=== PATIENT | male | born 1970 | race Caucasian/White ===

== ENCOUNTER 2016-12-19 19:38 | Emergency (ER) | payer BC ==
[2016-12-19 19:48] VITALS: BP 120/86
[2016-12-19 20:02] LABS: Urine Appearance Clear; Urine Bilirubin Negative (NEGATIVE); Urine Blood Negative /ul (NEGATIVE); Urine Color Yellow; Urine Ketone Negative (NEGATIVE); Urine Nitrite Negative (NEGATIVE); Urine Protein Negative (NEGATIVE); Urine Specific Gravity 1.005 SP.GR. (1.005-1.030); Urine Urobilinogen Normal (NORMAL); Urine pH 5.5 pH (5.0-7.0)
[2016-12-19 20:03] LABS: Urine Bacteria None Seen; Urine RBC None Seen /hpf (0-5); Urine WBC 0-5 /hpf (0-5)
[2016-12-19] MEDS ORDERED: ALPRAZolam 0.25 MG TABLET PO ONE (20:04)
[2016-12-19] MEDS ORDERED: ALPRAZolam 0.25 MG TABLET ONE ×2 (20:05→20:06)
[2016-12-19 20:07] LABS: Cocaine Ur Negative (NEGATIVE); Urine Barbiturate Negative (NEGATIVE); Urine Benzodiazepines Negative (NEGATIVE); Urine Opiates Negative (NEGATIVE); Urine PCP Negative (NEGATIVE); Urine THC Negative (NEGATIVE)
--- NOTE | 2016-12-19 20:12 | ERNOTE ---
Psychological HPI - Date Date of Service: 01/14/17 - General Chief Complaint: Psychiatric Problem Source: Reports: patient, family, RN notes reviewed, past records Exam Limitations: Reports: no limitations - Immun/Allergies/Home Medications Allergies/Adverse Reactions: Allergies No Known Allergies Allergy (Verified 12/19/16 19:48) Home Medications: HOME MEDICATIONS Insulin Aspart [Novolog Flexpen] 7 unit SQ ACHS PRN 09/28/13 [Last Taken ] ALPRAZolam [Xanax] 0.25 mg PO DAILY PRN #10 tablet 12/19/16 [Last Taken Unknown] Citalopram Hydrobromide [Citalopram HBr] 10 mg PO DAILY #14 tablet 12/19/16 [ Last Taken Unknown] Insulin Glargine,Hum.rec.anlog [Lantus] 20 units SC HS 12/19/16 [Last Taken Unknown] - History of Present Illness Narrative: 46 y/o male ambulatory to the ED with his mother for depression symptoms. He and his girlfriend broke up recently. For the past week, he has been very depressed and unable to sleep. He has been on antidepressants in the past. Time Seen by Provider: 12/19/16 19:55 Arrived by: Reports: private car Onset/duration: Reports: gradual onset Intent: Reports: no prior thoughts-suicide, other - denies any suicidal thoughts Situational Problems: Reports: significant other Associated Symptoms: Reports: depressed. Denies: angry, frustrated, agitated, hostile, suicidal thoughts Prior Treament: Denies: recently seen, similar symptoms before Review of Systems - Review of Systems Constitutional: Present: fatigue. Absent: recent illness, fever EYE: Present: no symptoms reported ENT: Present: no symptoms reported Respiratory: Present: no symptoms reported Cardiology: Absent: chest pain, palpitations Gastrointestinal/Abdominal: Present: eating less, drinking less. Absent: vomiting, diarrhea Genitourinary: Present: no symptoms reported Musculoskeletal: Present: no symptoms reported Skin: Present: no symptoms reported Neurological: Absent: headache, dizziness/light-headedness Endocrine: Present: no symptoms reported Hematologic/Lymphatic: Present: no symptoms reported Psych: Present: depressed - Patient's Past Medical History Patient History - Medical: Diabetes Type 1, Depression Patient History - Cardiac/Respiratory: No pertinent hx Patient History - Cancer: No Hx of Cancer Patient History - Surgical Procedures: No surgical history Patient History - Other: None - Social History Living Situations: alone Abuse History: No History of abuse Psych History: Hx of Depression, Current tx/ever been on anti-depressants or anti-anxiety meds Smoking Status: Never smoker Alcohol Use: none Drug Use: none Psychological Exam - Exam General Appearance: Present: alert, mild distress, thin Head Exam: Present: normal inspection Neurological: Present: alert, calm, oriented x 3, depressed affect, flat Thoughts/Hallucinations: Present: normal thought pattern Behavior/Eye Contact/Speech: Present: cooperative, normal speech Respiratory: Present: no respiratory distress, normal breath sounds, no accessory muscle use, lungs clear Cardiovascular/Chest: Present: regular rate, rhythm, no murmur Skin Exam: Present: normal color, warm/dry ED Progress - Vital Signs Patient's Vital Signs:: I have reviewed the patient's vital signs. Vital Signs: Vital Signs 12/19/16 19:41 Temperature 36.3 C L Pulse Rate 104 H Respiratory 12 Rate Blood Pressure 120/86 O2 Sat by Pulse 96 Oximetry - Progress/Reassessment Chief Complaint: Psychiatric Problem Progress:: Unchanged Departure Clinical Impression: Depression Qualifiers: Depression Type: unspecified Qualified Code(s): F32.9 - Major depressive disorder, single episode, unspecified - Departure Disposition: Home Follow Up Needed Condition: Good Instructions: Dysphoria Additional Instructions: Contact Dr. Martínez's office tomorrow for follow-up in the next 7 to 10 days Return to the ER if symptoms worsen in the meantime Referrals: Elton Martínez DO [Primary Care Provider] - Prescriptions: ALPRAZolam [Xanax] 0.25 mg PO DAILY PRN #10 tablet PRN Reason: Insomnia Citalopram Hydrobromide [Citalopram HBr] 10 mg PO DAILY #14 tablet
== END 2016-12-19 20:15 | disposition home or self-care (01) ==
LOC: ER 19:38
DX: F32.9 Major depressive disorder, single episode, unspecified (principal); E10.9 Type 1 diabetes mellitus without complications; Z79.4 Long term (current) use of insulin

== ENCOUNTER 2018-03-30 10:22 | Inpatient (IN) ==
[2018-03-30] MEDS ORDERED: INSULIN REGULAR, HUMAN 100 UNITS/ML VIAL IV ONE (10:31)
[2018-03-30] MEDS ORDERED: NORMAL SALINE 1,000 ML IV ONE ×2 (10:31→11:29)
[2018-03-30] MEDS ORDERED: ONDANSETRON HCL/PF 2 MG/ML VIAL IV ONE (10:34)
[2018-03-30 10:50] LABS: Hematocrit 44.4 % (42.0-52.0); Hemoglobin 15.4 gm/dL (13.5-18.0); Mean Cell Volume 91.2 fl (78-100); Mean Corpuscular Hemoglobin 31.6 pg (27-31); Mean Corpuscular Hgb Conc 34.7 g/dl (32-36); Mean Platelet Volume 9.6 fl (8-11.3); Neutrophil % 86.2 % (42-75.0); Platelet Count 365 K/mm3 (150-450); Red Blood Count 4.87 M/mm3 (4.7-6.0); Red Cell Distribution Width 11.9 % (11.5-14.0); White Blood Count 26.7 K/mm3 (4.0-10.5)
[2018-03-30 10:54] LABS: Total Cells Counted 100
--- NOTE | 2018-03-30 11:00 | ERNOTE ---
Medical Problem HPI - Narrative Date of Service: 03/30/18 - General Chief Complaint: Diabetes Related Problem Time Seen by Provider: 03/30/18 10:27 Source: patient Exam Limitations: clinical condition - Immun/Allergies/Home Medications Immunizations: IMMUNIZATION HX Immunizations Up to Date Yes History of Influenza Vaccine No Hx Pneumococcal Vaccination No Allergies/Adverse Reactions: Allergies No Known Allergies Allergy (Verified 03/30/18 13:01) Home Medications: HOME MEDICATIONS Insulin Glargine,Hum.rec.anlog [Lantus] 20 units SC DAILY@1230 12/19/16 [Last Taken 03/29/18] Insulin Lispro [Humalog] See Protocol SQ ACHS 03/30/18 [Last Taken 03/29/18] - Pain Score Pain Score #1 Pain Score: 0 - History of Present History Narrative: The patient is a 48 year old male who presents for lethargy and vomiting which has been present since last evening. There are associated symptoms of increased thirst and decreased appetite. The patient denies pain. There are no alleviating factors. There are no aggravating factors. Previous treatments have included: none. The past medical history includes: DM, HTN and HLD. The social history is negative for smoking. The patient has had no ill contacts. Patient states last evening he began having nausea with vomiting, body aches and fatigue. Patient upon arrival is lethargic with dry mucous membranes. Review of Systems - Review of Systems Constitutional: Present: chills, fatigue. Absent: fever EYE: Present: no symptoms reported ENT: Absent: nasal drainage, sore throat Respiratory: Absent: shortness of breath, cough Cardiology: Absent: chest pain Gastrointestinal/Abdominal: Present: nausea, vomiting. Absent: diarrhea, abdominal pain Genitourinary: Present: decreased urinary output. Absent: frequency, dysuria Musculoskeletal: Present: muscle pain Neurological: Present: weakness Endocrine: Present: increased thirst Hematologic/Lymphatic: Present: no symptoms reported Psych: Present: no symptoms reported All Other Systems: All systems neg except as marked Medical History (Last Reviewed 03/30/18 @ 10:58 by BRISA Arnett) Diabetes mellitus Onset Date: Unknown Diabetic eye exam Onset Date: ~04/27/17 IEC - no evidence of diabetic retinopathy found in either eye Erectile dysfunction Onset Date: Unknown Essential hypertension Onset Date: ~06/10/11 Hyperlipidemia Onset Date: Unknown Neuropathy Onset Date: Unknown bilateral feet Surgical History: Surgical History (Last Reviewed 03/30/18 @ 10:58 by BRISA Arnett) S/P epidural steroid injection Onset Date: ~11/13/13 L4-L5 Family History: Family History (Last Reviewed 03/30/18 @ 13:01 by Ascencion Whitney RN) Mother No pertinent past medical history Father No pertinent past medical history Social History: Preferred Language Macedonian Do you have any mormonism or No cultural preference? Smoking Status Never smoker Have you smoked in the past 12 No months Do you dip or chew tobacco No Abuse History No History of abuse Psych History Hx of Depression,Currently on Meds Alcohol Use occasionally Drug Use none (Last Updated 02/01/18 @ 14:47 by Rose Marie Mendez RN) No Social History Section defined Physical Exam - Physical Exam General Appearance: Present: lethargic, irritable Eye Exam: Normal inspection: bilateral Ears, Nose, Throat: Present: dry mucous membranes Respiratory: Present: no respiratory distress, normal breath sounds, lungs clear Cardiovascular/Chest: Present: no murmur, tachycardia Gastrointestinal/Abdominal: Present: normal bowel sounds, nontender, soft, no organomegaly Neurological Exam: Absent: motor weakness Skin Exam: Present: warm/dry, other - flushed ED Progress - Date and Time Seen: Date and Time: 03/30/18 11:26 Discussed care with , will admit patient to SCU for DKA treatment. - Results and Orders Patient's Lab Results:: I have reviewed the patient's lab results. - Vital Signs Patient's Vital Signs:: I have reviewed the patient's vital signs. Vital Signs: Vital Signs 03/30/18 10:31 03/30/18 10:45 Temperature 36.7 C Pulse Rate 120 H 120 H Respiratory Rate 22 H 24 H Blood Pressure 158/103 H 138/77 O2 Sat by Pulse Oximetry 100 - EKG EKG: NSR - tachycardia EKG read: Reviewed by me - X-Ray X-Ray #1 X-Ray: chest Interpretation: Reviewed by me X-ray Comments: X-RAY REPORT [id number] RAD/Chest Single View *~ Exam Date: 03/30/2018 11:20 Ordering Physician: Lou Mendiola HISTORY: Diabetic ketoacidosis. Additional history from technologist: diabetic episode TECHNIQUE: Single portable AP view of the chest was obtained at 1133 hours. COMPARISONS: 02/21/2017 FINDINGS: Chest Single View *: Normal inflation of lungs. No definite consolidation. Pulmonary vasculature is normal. No pneumothorax or pleural fluid collections apparent. Cardiac and mediastinal silhouettes are normal for technique. Trachea is in normal position given patient positioning. Osseous structures are grossly intact. IMPRESSION: No acute cardiopulmonary findings. Electronically signed by Francisco Piña M.D.. X-Ray #2 X-Ray: abdomen Interpretation: Reviewed by me X-ray Comments: X-RAY REPORT ~[id number] RAD/Abdomen Kub~ Exam Date: 03/30/2018 11:22 Ordering Physician: Jung Farias HISTORY: Diabetic ketoacidosis. TECHNIQUE: AP supine radiograph(s) of the abdomen were obtained, total of 2 images obtained. COMPARISONS: None available.. FINDINGS: Abdomen Kub: Without upright or decubitus imaging, potential free air cannot be entirely excluded. No obvious supine imaging findings of free air. No abnormal dilation of large or small bowel. There is mild to moderate stool retention throughout the colonic segments, especially at the rectosigmoid region. No definite pathologic calcifications apparent. Osseous structures are intact. IMPRESSION: Stool retention suggestive of constipation. No evidence for obstruction. Electronically signed by Francisco Piña M.D.. - Progress/Reassessment Chief Complaint: Diabetes Related Problem Departure Clinical Impression: DKA (diabetic ketoacidosis) Qualifiers: Diabetes mellitus type: type 1 Diabetes mellitus complication detail: without coma Qualified Code(s): E10.10 - Type 1 diabetes mellitus with ketoacidosis without coma - Departure Disposition: Still a patient Condition: Stable
[2018-03-30 11:03] LABS: Band 26 % (0-2.0); Dohle Bodies 2+; Lymphocyte 5 % (20-51); Monocyte 3 % (0-9); Neutrophil 66 % (42-75); Neutrophil # 17.6 K/mm3 (1.3-6.0); Platelet Estimate Normal (NORMAL)
[2018-03-30 11:14] LABS: ALT 24 U/L (19-67); AST 16 U/L (0-48); Albumin * 3.5 gm/dl (3.4-5.0); Alkaline Phosphatase * 160 U/L (50-170); Anion Gap 37.4 mmol/L (6.8-13.8); Bilirubin, Total 0.7 mg/dL (0.0-1.1); Blood Urea Nitrogen 25 mg/dL (6-23); Ca. Corrected For Albumin 8.5 mg/dL (8.4-10.2); Calcium * 8.4 mg/dL (7.9-10.9); Carbon Dioxide 5.8 mmol/L (24-32.6); Chloride 93 mmol/L (97-106); Potassium 5.2 mmol/L (3.4-4.6); Sodium 131 mmol/L (132-142); Total Protein 7.1 gm/dL (6.2-8.2)
[2018-03-30 11:16] LABS: Glucose * 528 mg/dL (70-110)
[2018-03-30] MEDS: INSULIN REGULAR, HUMAN 100 UNITS in NORMAL SALINE 100 ML IV PRN ×2 (11:43)
[2018-03-30 12:03] LABS: Urine Bilirubin 1 mg/dl (NEGATIVE); Urine Blood 25 /ul (NEGATIVE); Urine Ketone Large mg/dL (NEGATIVE); Urine Nitrite Negative (NEGATIVE); Urine Protein 30 mg/dL (NEGATIVE); Urine Specific Gravity >=1.030 SP.GR. (1.005-1.030); Urine Urobilinogen Normal (NORMAL); Urine pH 5.5 pH (5.0-7.0)
[2018-03-30 12:17] LABS: Urine Amorphous Sediment TRACE (NONE-FEW); Urine Appearance Clear (CLEAR); Urine Bacteria None Seen; Urine Color Yellow; Urine RBC 0-5 /hpf (0-5); Urine WBC None Seen /hpf (0-5)
[2018-03-30] MEDS: NORMAL SALINE 1,000 ML IV PRN ×3 (12:30→20:49)
[2018-03-30] MEDS ORDERED: SENNOSIDES/DOCUSATE SODIUM 1 TAB TABLET PO ONE (12:58)
[2018-03-30] MEDS: POLYETHYLENE GLYCOL 3350 119 GM BTL PO SCH (13:20)
[2018-03-30 13:57] LABS: Hematocrit 40.7 % (42.0-52.0); Hemoglobin 14.4 gm/dL (13.5-18.0); Mean Cell Volume 88.5 fl (78-100); Mean Corpuscular Hemoglobin 31.3 pg (27-31); Mean Corpuscular Hgb Conc 35.4 g/dl (32-36); Mean Platelet Volume 9.5 fl (8-11.3); Platelet Count 284 K/mm3 (150-450); Red Cell Distribution Width 11.9 % (11.5-14.0); White Blood Count 23.9 K/mm3 (4.0-10.5)
[2018-03-30 14:13] LABS: ALT 22 U/L (19-67); AST 15 U/L (0-48); Albumin * 3.2 gm/dl (3.4-5.0); Alkaline Phosphatase * 144 U/L (50-170); Anion Gap 30.5 mmol/L (6.8-13.8); BUN/Creatinine Ratio 17.1 (9.0-21.6); Bilirubin, Total 0.7 mg/dL (0.0-1.1); Blood Urea Nitrogen 22 mg/dL (6-23); Ca. Corrected For Albumin 7.9 mg/dL (8.4-10.2); Calcium * 7.6 mg/dL (7.9-10.9); Carbon Dioxide 7.2 mmol/L (24-32.6); Chloride 99 mmol/L (97-106); Glucose * 353 mg/dL (70-110); Potassium 4.7 mmol/L (3.4-4.6); Sodium 132 mmol/L (132-142); Total Protein 6.5 gm/dL (6.2-8.2); Troponin I Less than 0.017 ng/mL (0.00-0.10)
[2018-03-30] MEDS: BENZOCAINE/MENTHOL 16 EACH BOX MM PRN ×2 (15:45→20:58)
[2018-03-30 17:20] LABS: Albumin * 3.3 gm/dl (3.4-5.0); Anion Gap 28.6 mmol/L (6.8-13.8); BUN/Creatinine Ratio 15.5 (9.0-21.6); Bilirubin, Total 0.8 mg/dL (0.0-1.1); Calcium * 7.8 mg/dL (7.9-10.9); Carbon Dioxide 6.4 mmol/L (24-32.6); Total Protein 6.7 gm/dL (6.2-8.2)
[2018-03-30] MEDS: ONDANSETRON HCL/PF 2 MG/ML VIAL IV PRN ×2 (19:33→23:55)
[2018-03-30 21:35] LABS: Albumin * 3.2 gm/dl (3.4-5.0); Anion Gap 25.8 mmol/L (6.8-13.8); Bilirubin, Total 0.8 mg/dL (0.0-1.1); Ca. Corrected For Albumin 8.1 mg/dL (8.4-10.2); Calcium * 7.8 mg/dL (7.9-10.9); Carbon Dioxide 9.8 mmol/L (24-32.6); Potassium 4.6 mmol/L (3.4-4.6); Total Protein 6.7 gm/dL (6.2-8.2)
--- NOTE | 2018-03-30 23:53 | HP ---
Chief Complaint - Chief Complaint Date of Service: 03/30/18 Time of Service: 16:00 Chief Complaint: Vomiting, fatigue History of Present Illness: Eduardo is a 48 yo male with Type I Diabetes Mellitus. His last hemoglobin A1c was below 7% and he reports it has been well controlled. However yesterday and today he has been vomiting a lot and it has been black and tarry. He denies black stools. He gradually became more and more fatigued and presented to the [facility] ER. His glucose was >300, pH 7.0, with metabolic acidosis, serum ketones, and a high anion gap. He reports he has been using his insulin like usual. Medical History (Last Updated 03/30/18 @ 14:51 by Ascencion Whitney RN) Depression Diabetes mellitus Onset Date: Unknown Diabetic eye exam Onset Date: ~04/27/17 IEC - no evidence of diabetic retinopathy found in either eye Erectile dysfunction Onset Date: Unknown Essential hypertension Onset Date: ~06/10/11 Hyperlipidemia Onset Date: Unknown Neuropathy Onset Date: Unknown bilateral feet Surgical History: Surgical History (Last Reviewed 03/30/18 @ 13:01 by Ascencion Whitney RN) S/P epidural steroid injection Onset Date: ~11/13/13 L4-L5 Family History: Family History (Last Reviewed 03/30/18 @ 13:01 by Ascencion Whitney RN) Mother No pertinent past medical history Father No pertinent past medical history Social History: Patient Lives/Resources Home Utilized Occupation [employer] in [place] Preferred Language Chinese Do you have any rastafari or Yes: Baptism cultural preference? Smoking Status Never smoker Have you smoked in the past 12 No months Do you dip or chew tobacco Yes Abuse History No History of abuse Psych History Hx of Depression,Currently on Meds Alcohol Use occasionally Drug Use none (Last Updated 02/01/18 @ 14:47 by Rose Marie Mendez RN) No Social History Section defined Review Of Systems (GEN) - Review of Systems Generalized/Overall Review: Present: Weakness, Malaise. Absent: Chills, Fever EENTM: Present: No Symptoms Reported Respiratory: Absent: Cough, Shortness of Breath Cardiac: Absent: Chest Pain, Edema, Palpitations, Syncope Abdominal: Present: Nausea, Vomiting, Hematemesis. Absent: Abdominal Pain Genitourinary: Present: No Symptoms Reported Musculoskeletal: Present: No Symptoms Reported Neurological: Present: No Symptoms Reported Skin: Present: No Symptoms Reported Immunizations: IMMUNIZATION HX Immunizations Up to Date Yes History of Influenza Vaccine No Hx Pneumococcal Vaccination No Allergies/Adverse Reactions: Allergies Allergy/AdvReac Type Severity Reaction Status Date / Time No Known Allergies Allergy Verified 03/30/18 13:01 Home Medications: HOME MEDICATIONS Insulin Glargine,Hum.rec.anlog [Lantus] 20 units SC DAILY@1230 12/19/16 [Last Taken 03/29/18] Insulin Lispro [Humalog] See Protocol SQ ACHS 03/30/18 [Last Taken 03/29/18] Exam - Exam Vital Signs: Vital Signs - Last Taken Temp 37.4 C 03/30/18 21:00 Pulse 113 H 03/30/18 21:00 Resp 14 03/30/18 21:00 BP 136/76 03/30/18 21:00 Pulse Ox 98 03/30/18 21:00 Constitutional: Present: Alert, Oriented x3, Cooperative, Other - Appears fatig ued ENT Exam: Present: hearing grossly normal Eye Exam: bilateral eye: normal inspection Respiratory: Present: lungs clear, normal breath sounds, no respiratory distress Cardiovascular/Chest: Present: no edema, no murmur, tachycardia Abdomen: Present: Normal bowel sounds, soft, nontender, nondistended Extremity: Present: normal inspection Skin Exam: Present: normal color, warm/dry, no cyanosis Neurologic: Present: alert, normal mood/affect, oriented x 3 Eye contact: Present: cooperative, good eye contact, normal speech Thoughts: Present: normal thought pattern, no apparent hallucination Diagnostic Studies: Abnormal Lab Results 03/30/18 03/30/18 03/30/18 Range/Units 10:43 10:43 10:43 WBC 26.7 H (4.0-10.5) K/mm3 RBC (4.7-6.0) M/mm3 Hct (42.0-52.0) % MCH 31.6 H (27-31) pg Immature Gran % (Auto) 1.50 H (0.001-0.429) % Immature Gran # (Auto) 0.41 H (0.000-0.0310) K/mm3 Neutrophils % 86.2 H (42-75.0) % Band Neuts % (Manual) 26 H (0-2.0) % Lymphocytes % 4.5 L (20-51) % Lymphocytes % (Manual) 5 L (20-51) % Neutrophils # 23.0 H (1.3-6.0) K/mm3 Neutrophils # (Manual) 17.6 H (1.3-6.0) K/mm3 Lymphocytes # 1.20 L (1.5-3.5) k/mm3 Lymphocytes # (Manual) 1.3 L (1.5-3.5) k/mm3 Monocytes # 2.0 H (0.0-1.0) k/mm3 pCO2 (35.0-48.0) mmHg pO2 (83.0-108.0) mmHg HCO3 (21.0-28.0) mmol/L Total CO2 (19.0-24.0) mmol/L Base Excess (-2.0-3.0) mmol/L ABG pH (7.35-7.45) Sodium 131 L (132-142) mmol/L Potassium 5.2 H (3.4-4.6) mmol/L Chloride 93 L (97-106) mmol/L Carbon Dioxide 5.8 L (24-32.6) mmol/L Anion Gap 37.4 H (6.8-13.8) mmol/L BUN 25 H D (6-23) mg/dL Creatinine 1.67 H D (0.4-1.4) mg/dL Est GFR (Non-Af Amer) 47 L D (60-130) mL/min Random Glucose 528 H* (70-110) mg/dL Lactic Acid, Venous 3.0 H* (0.4-2.0) mmol/L Calcium (7.9-10.9) mg/dL Calcium Adj for Albumin (8.4-10.2) mg/dL Albumin (3.4-5.0) gm/dl Urine Protein (NEGATIVE) mg/dL Urine Glucose (UA) (NEGATIVE) mg/dL Urine Blood (NEGATIVE) /ul Urine Bilirubin (NEGATIVE) mg/dl Gastric Occult Blood Serum Ketones Positive - 20mg/dl H (NEGATIVE) 03/30/18 03/30/18 03/30/18 Range/Units 10:52 11:47 13:45 WBC (4.0-10.5) K/mm3 RBC (4.7-6.0) M/mm3 Hct (42.0-52.0) % MCH (27-31) pg Immature Gran % (Auto) (0.001-0.429) % Immature Gran # (Auto) (0.000-0.0310) K/mm3 Neutrophils % (42-75.0) % Band Neuts % (Manual) (0-2.0) % Lymphocytes % (20-51) % Lymphocytes % (Manual) (20-51) % Neutrophils # (1.3-6.0) K/mm3 Neutrophils # (Manual) (1.3-6.0) K/mm3 Lymphocytes # (1.5-3.5) k/mm3 Lymphocytes # (Manual) (1.5-3.5) k/mm3 Monocytes # (0.0-1.0) k/mm3 pCO2 Less than 14.9 L* (35.0-48.0) mmHg pO2 138.3 H (83.0-108.0) mmHg HCO3 2.6 L (21.0-28.0) mmol/L Total CO2 2.9 L (19.0-24.0) mmol/L Base Excess -26.8 L (-2.0-3.0) mmol/L ABG pH 7.00 L* (7.35-7.45) Sodium (132-142) mmol/L Potassium 4.7 H (3.4-4.6) mmol/L Chloride (97-106) mmol/L Carbon Dioxide 7.2 L (24-32.6) mmol/L Anion Gap 30.5 H (6.8-13.8) mmol/L BUN (6-23) mg/dL Creatinine (0.4-1.4) mg/dL Est GFR (Non-Af Amer) (60-130) mL/min Random Glucose 353 H D (70-110) mg/dL Lactic Acid, Venous (0.4-2.0) mmol/L Calcium 7.6 L (7.9-10.9) mg/dL Calcium Adj for Albumin 7.9 L (8.4-10.2) mg/dL Albumin 3.2 L (3.4-5.0) gm/dl Urine Protein 30 H (NEGATIVE) mg/dL Urine Glucose (UA) >=1000 H (NEGATIVE) mg/dL Urine Blood 25 H (NEGATIVE) /ul Urine Bilirubin 1 H (NEGATIVE) mg/dl Gastric Occult Blood Serum Ketones (NEGATIVE) 03/30/18 03/30/18 03/30/18 Range/Units 13:45 16:55 17:18 WBC 23.9 H (4.0-10.5) K/mm3 RBC 4.60 L (4.7-6.0) M/mm3 Hct 40.7 L (42.0-52.0) % MCH 31.3 H (27-31) pg Immature Gran % (Auto) (0.001-0.429) % Immature Gran # (Auto) (0.000-0.0310) K/mm3 Neutrophils % (42-75.0) % Band Neuts % (Manual) (0-2.0) % Lymphocytes % (20-51) % Lymphocytes % (Manual) (20-51) % Neutrophils # (1.3-6.0) K/mm3 Neutrophils # (Manual) (1.3-6.0) K/mm3 Lymphocytes # (1.5-3.5) k/mm3 Lymphocytes # (Manual) (1.5-3.5) k/mm3 Monocytes # (0.0-1.0) k/mm3 pCO2 (35.0-48.0) mmHg pO2 (83.0-108.0) mmHg HCO3 (21.0-28.0) mmol/L Total CO2 (19.0-24.0) mmol/L Base Excess (-2.0-3.0) mmol/L ABG pH (7.35-7.45) Sodium 131 L (132-142) mmol/L Potassium 5.0 H (3.4-4.6) mmol/L Chloride (97-106) mmol/L Carbon Dioxide 6.4 L (24-32.6) mmol/L Anion Gap 28.6 H (6.8-13.8) mmol/L BUN (6-23) mg/dL Creatinine (0.4-1.4) mg/dL Est GFR (Non-Af Amer) (60-130) mL/min Random Glucose 314 H (70-110) mg/dL Lactic Acid, Venous (0.4-2.0) mmol/L Calcium 7.8 L (7.9-10.9) mg/dL Calcium Adj for Albumin 8.0 L (8.4-10.2) mg/dL Albumin 3.3 L (3.4-5.0) gm/dl Urine Protein (NEGATIVE) mg/dL Urine Glucose (UA) (NEGATIVE) mg/dL Urine Blood (NEGATIVE) /ul Urine Bilirubin (NEGATIVE) mg/dl Gastric Occult Blood Positive H Serum Ketones (NEGATIVE) 03/30/18 Range/Units 21:07 WBC (4.0-10.5) K/mm3 RBC (4.7-6.0) M/mm3 Hct (42.0-52.0) % MCH (27-31) pg Immature Gran % (Auto) (0.001-0.429) % Immature Gran # (Auto) (0.000-0.0310) K/mm3 Neutrophils % (42-75.0) % Band Neuts % (Manual) (0-2.0) % Lymphocytes % (20-51) % Lymphocytes % (Manual) (20-51) % Neutrophils # (1.3-6.0) K/mm3 Neutrophils # (Manual) (1.3-6.0) K/mm3 Lymphocytes # (1.5-3.5) k/mm3 Lymphocytes # (Manual) (1.5-3.5) k/mm3 Monocytes # (0.0-1.0) k/mm3 pCO2 (35.0-48.0) mmHg pO2 (83.0-108.0) mmHg HCO3 (21.0-28.0) mmol/L Total CO2 (19.0-24.0) mmol/L Base Excess (-2.0-3.0) mmol/L ABG pH (7.35-7.45) Sodium (132-142) mmol/L Potassium (3.4-4.6) mmol/L Chloride (97-106) mmol/L Carbon Dioxide 9.8 L (24-32.6) mmol/L Anion Gap 25.8 H (6.8-13.8) mmol/L BUN (6-23) mg/dL Creatinine (0.4-1.4) mg/dL Est GFR (Non-Af Amer) (60-130) mL/min Random Glucose 266 H (70-110) mg/dL Lactic Acid, Venous (0.4-2.0) mmol/L Calcium 7.8 L (7.9-10.9) mg/dL Calcium Adj for Albumin 8.1 L (8.4-10.2) mg/dL Albumin 3.2 L (3.4-5.0) gm/dl Urine Protein (NEGATIVE) mg/dL Urine Glucose (UA) (NEGATIVE) mg/dL Urine Blood (NEGATIVE) /ul Urine Bilirubin (NEGATIVE) mg/dl Gastric Occult Blood Serum Ketones (NEGATIVE) Laboratory Results WBC 23.9 K/mm3 (4.0-10.5) H 03/30/18 13:45 RBC 4.60 M/mm3 (4.7-6.0) L 03/30/18 13:45 Hgb 14.4 gm/dL (13.5-18.0) 03/30/18 13:45 Hct 40.7 % (42.0-52.0) L 03/30/18 13:45 MCV 88.5 fl (78-100) 03/30/18 13:45 MCH 31.3 pg (27-31) H 03/30/18 13:45 MCHC 35.4 g/dl (32-36) 03/30/18 13:45 RDW 11.9 % (11.5-14.0) 03/30/18 13:45 Plt Count 284 K/mm3 (150-450) 03/30/18 13:45 MPV 9.5 fl (8-11.3) 03/30/18 13:45 Immature Gran % (Auto) 1.50 % (0.001-0.429) H 03/30/18 10:43 Immature Gran # (Auto) 0.41 K/mm3 (0.000-0.0310) H 03/30/18 10:43 Neutrophils % 86.2 % (42-75.0) H 03/30/18 10:43 Neutrophils % (Manual) 66 % (42-75) 03/30/18 10:43 Band Neuts % (Manual) 26 % (0-2.0) H 03/30/18 10:43 Lymphocytes % 4.5 % (20-51) L 03/30/18 10:43 Lymphocytes % (Manual) 5 % (20-51) L 03/30/18 10:43 Monocytes % 7.5 % (0.0-9) 03/30/18 10:43 Monocytes % (Manual) 3 % (0-9) 03/30/18 10:43 Eosinophils % 0.0 % (0.0-3.0) 03/30/18 10:43 Basophils % 0.3 % (0.0-1.0) 03/30/18 10:43 Nucleated RBC % 0.0 k/mm3 (0-1) 03/30/18 10:43 Neutrophils # 23.0 K/mm3 (1.3-6.0) H 03/30/18 10:43 Neutrophils # (Manual) 17.6 K/mm3 (1.3-6.0) H 03/30/18 10:43 Lymphocytes # 1.20 k/mm3 (1.5-3.5) L 03/30/18 10:43 Lymphocytes # (Manual) 1.3 k/mm3 (1.5-3.5) L 03/30/18 10:43 Monocytes # 2.0 k/mm3 (0.0-1.0) H 03/30/18 10:43 Monocytes # (Manual) 0.8 k/mm3 (0.0-1.0) 03/30/18 10:43 Eosinophils # 0.0 k/mm3 (0.0-0.7) 03/30/18 10:43 Absolute Basophils 0.1 k/mm3 (0.0-0.1) 03/30/18 10:43 Toxic Vacuolation 1+ 03/30/18 10:43 Dohle Bodies 2+ 03/30/18 10:43 Platelet Estimate Normal (NORMAL) 03/30/18 10:43 pCO2 Less than 14.9 mmHg (35.0-48.0) L* 03/30/18 10:52 pO2 138.3 mmHg (83.0-108.0) H 03/30/18 10:52 HCO3 2.6 mmol/L (21.0-28.0) L 03/30/18 10:52 Total CO2 2.9 mmol/L (19.0-24.0) L 03/30/18 10:52 Base Excess -26.8 mmol/L (-2.0-3.0) L 03/30/18 10:52 ABG pH 7.00 (7.35-7.45) L* 03/30/18 10:52 ABG O2 Sat (Measured) 97.3 % (94.0-98.0) 03/30/18 10:52 Sodium 134 mmol/L (132-142) 03/30/18 21:07 Plasma Sodium 137 mmol/L (130-142) 03/30/18 21:07 Potassium 4.6 mmol/L (3.4-4.6) 03/30/18 21:07 Chloride 103 mmol/L (97-106) 03/30/18 21:07 Carbon Dioxide 9.8 mmol/L (24-32.6) L 03/30/18 21:07 Anion Gap 25.8 mmol/L (6.8-13.8) H 03/30/18 21:07 BUN 16 mg/dL (6-23) 03/30/18 21:07 Creatinine 1.23 mg/dL (0.4-1.4) 03/30/18 21:07 Est GFR (Non-Af Amer) 66 mL/min (60-130) 03/30/18 21:07 BUN/Creatinine Ratio 13.0 (9.0-21.6) 03/30/18 21:07 Random Glucose 266 mg/dL (70-110) H 03/30/18 21:07 Lactic Acid, Venous 1.0 mmol/L (0.4-2.0) 03/30/18 13:45 Calcium 7.8 mg/dL (7.9-10.9) L 03/30/18 21:07 Calcium Adj for Albumin 8.1 mg/dL (8.4-10.2) L 03/30/18 21:07 Total Bilirubin 0.8 mg/dL (0.0-1.1) 03/30/18 21:07 AST 16 U/L (0-48) 03/30/18 21:07 ALT 21 U/L (19-67) 03/30/18 21:07 Alkaline Phosphatase 142 U/L (50-170) 03/30/18 21:07 Troponin I Less than 0.017 ng/mL (0.00-0.10) 03/30/18 13:45 Total Protein 6.7 gm/dL (6.2-8.2) 03/30/18 21:07 Albumin 3.2 gm/dl (3.4-5.0) L 03/30/18 21:07 Urine Color Yellow 03/30/18 11:47 Urine Appearance Clear (CLEAR) 03/30/18 11:47 Urine pH 5.5 pH (5.0-7.0) 03/30/18 11:47 Ur Specific [place] >=1.030 SP.GR. (1.005-1.030) 03/30/18 11:47 Urine Protein 30 mg/dL (NEGATIVE) H 03/30/18 11:47 Urine Glucose (UA) >=1000 mg/dL (NEGATIVE) H 03/30/18 11:47 Urine Ketones Large mg/dL (NEGATIVE) 03/30/18 11:47 Urine Blood 25 /ul (NEGATIVE) H 03/30/18 11:47 Urine Nitrate Negative (NEGATIVE) 03/30/18 11:47 Urine Bilirubin 1 mg/dl (NEGATIVE) H 03/30/18 11:47 Urine Ictotest Negative (NEGATIVE) 03/30/18 11:47 Prot Sulfosalicylic Acd 1+ mg/dL (0) 03/30/18 11:47 Urine Urobilinogen Normal EU/dl (NORMAL) 03/30/18 11:47 Ur Leukocyte Esterase Negative /ul (NEGATIVE) 03/30/18 11:47 Urine RBC 0-5 /hpf (0-5) 03/30/18 11:47 Urine WBC None seen /hpf (0-5) 03/30/18 11:47 Ur Epithelial Cells None seen /hpf (0-5) 03/30/18 11:47 Amorphous Sediment Trace (NONE-FEW) 03/30/18 11:47 Urine Bacteria None seen (NONE) 03/30/18 11:47 Urine Culture Comments No culture indicated 03/30/18 11:47 Gastric Occult Blood Positive H 03/30/18 17:18 Serum Ketones Positive - 20mg/dl (NEGATIVE) H 03/30/18 10:43 Influenza Type A Ag Negative (NEGATIVE) 03/30/18 10:49 Influenza Type B Ag Negative (NEGATIVE) 03/30/18 10:49 Assessment/Plan - Narrative Narrative: Eduardo is a 48 yo male with: 1) Diabetic Ketoacidosis. Severe metabolic acidosis with high anion gap, positive serum ketones, and a pH of 7.0 show this to be a severe DKA. I suspect it is secondary to his type 1 diabetes but complicated from potentially having acute gastritis with GI bleed and hematemesis. He became significantly dehydrated due to emesis and snowballed into DKA. Will treat DKA with aggressive IV fluids and IV insulin. Insulin drip will be titrated based on DKA protocol with hourly glucose. Will check CMP every 4 hours and monitor fluids and electrolytes as needed. Expect >2 midnights to correct this acidosis due to it's severity. 2) GI bleed - Black tarry emesis reported by patient, will check occult stool and gastric contents. Hemoglobin is normal at this time so I do not suspect a significant bleed. Will monitor hemoglobin. - Assessment/Plan (1) DKA (diabetic ketoacidosis) Problem: Acute Qualifiers: Diabetes mellitus type: type 1 Diabetes mellitus complication detail: with out coma Qualified Code(s): E10.10 - Type 1 diabetes mellitus with ketoacidosis without coma
[2018-03-31] MEDS: NORMAL SALINE 1,000 ML IV PRN ×4 (00:58→13:20)
[2018-03-31 01:03] LABS: Albumin * 3.2 gm/dl (3.4-5.0); Anion Gap 25.4 mmol/L (6.8-13.8); BUN/Creatinine Ratio 12.1 (9.0-21.6); Bilirubin, Total 0.9 mg/dL (0.0-1.1); Ca. Corrected For Albumin 8.2 mg/dL (8.4-10.2); Calcium * 7.9 mg/dL (7.9-10.9); Carbon Dioxide 10.9 mmol/L (24-32.6); Potassium 4.3 mmol/L (3.4-4.6); Total Protein 6.5 gm/dL (6.2-8.2)
[2018-03-31] MEDS: ONDANSETRON HCL/PF 2 MG/ML VIAL IV PRN ×4 (04:49→22:56)
[2018-03-31 05:16] LABS: Anion Gap 22.3 mmol/L (6.8-13.8); BUN/Creatinine Ratio 10.7 (9.0-21.6); Bilirubin, Total 0.8 mg/dL (0.0-1.1); Ca. Corrected For Albumin 8.2 mg/dL (8.4-10.2); Calcium * 7.7 mg/dL (7.9-10.9); Carbon Dioxide 12.7 mmol/L (24-32.6); Total Protein 6.2 gm/dL (6.2-8.2)
[2018-03-31 08:54] LABS: Hematocrit 35.4 % (42.0-52.0); Hemoglobin 12.7 gm/dL (13.5-18.0); Mean Cell Volume 87.6 fl (78-100); Mean Corpuscular Hemoglobin 31.4 pg (27-31); Mean Corpuscular Hgb Conc 35.9 g/dl (32-36); Mean Platelet Volume 8.8 fl (8-11.3); Neutrophil % 85.3 % (42-75.0); Platelet Count 214 K/mm3 (150-450); Red Blood Count 4.04 M/mm3 (4.7-6.0); Red Cell Distribution Width 12.3 % (11.5-14.0); White Blood Count 14.1 K/mm3 (4.0-10.5)
[2018-03-31 09:10] LABS: Albumin * 2.8 gm/dl (3.4-5.0); Anion Gap 19.4 mmol/L (6.8-13.8); BUN/Creatinine Ratio 9.3 (9.0-21.6); Bilirubin, Total 0.9 mg/dL (0.0-1.1); Ca. Corrected For Albumin 8.3 mg/dL (8.4-10.2); Calcium * 7.7 mg/dL (7.9-10.9); Carbon Dioxide 15.3 mmol/L (24-32.6); Potassium 3.7 mmol/L (3.4-4.6); Total Protein 5.9 gm/dL (6.2-8.2)
[2018-03-31] MEDS: POLYETHYLENE GLYCOL 3350 119 GM BTL PO SCH (09:37)
[2018-03-31] MEDS: PANTOPRAZOLE SODIUM 40 MG in NORMAL SALINE 100 ML IV SCH (13:01)
--- NOTE | 2018-03-31 13:07 | PN ---
Subjective - Date and Time Seen Date: 03/31/18 Time: 13:07 Subjective Narrative: Eduardo is fatigued today, but awakens easily. He reports feeling tired and having emesis last night that was positive for blood. He has not vomited today. Objective - Vitals Vitals: Last Vital Signs Temp 37.2 C 03/31/18 08:05 Pulse 94 03/31/18 12:41 Resp 12 03/31/18 08:05 BP 120/88 03/31/18 08:05 Pulse Ox 99 03/31/18 08:05 - Abnormal Lab Findings Abnormal Lab Findings: Abnormal Lab Results 03/30/18 03/30/18 03/30/18 Range/Units 13:45 13:45 16:55 WBC 23.9 H (4.0-10.5) K/mm3 RBC 4.60 L (4.7-6.0) M/mm3 Hgb (13.5-18.0) gm/dL Hct 40.7 L (42.0-52.0) % MCH 31.3 H (27-31) pg Immature Gran % (Auto) (0.001-0.429) % Immature Gran # (Auto) (0.000-0.0310) K/mm3 Neutrophils % (42-75.0) % Lymphocytes % (20-51) % Neutrophils # (1.3-6.0) K/mm3 Lymphocytes # (1.5-3.5) k/mm3 Monocytes # (0.0-1.0) k/mm3 Sodium 131 L (132-142) mmol/L Potassium 4.7 H 5.0 H (3.4-4.6) mmol/L Chloride (97-106) mmol/L Carbon Dioxide 7.2 L 6.4 L (24-32.6) mmol/L Anion Gap 30.5 H 28.6 H (6.8-13.8) mmol/L Random Glucose 353 H D 314 H (70-110) mg/dL Calcium 7.6 L 7.8 L (7.9-10.9) mg/dL Calcium Adj for Albumin 7.9 L 8.0 L (8.4-10.2) mg/dL Total Protein (6.2-8.2) gm/dL Albumin 3.2 L 3.3 L (3.4-5.0) gm/dl Gastric Occult Blood 03/30/18 03/30/18 03/31/18 Range/Units 17:18 21:07 00:45 WBC (4.0-10.5) K/mm3 RBC (4.7-6.0) M/mm3 Hgb (13.5-18.0) gm/dL Hct (42.0-52.0) % MCH (27-31) pg Immature Gran % (Auto) (0.001-0.429) % Immature Gran # (Auto) (0.000-0.0310) K/mm3 Neutrophils % (42-75.0) % Lymphocytes % (20-51) % Neutrophils # (1.3-6.0) K/mm3 Lymphocytes # (1.5-3.5) k/mm3 Monocytes # (0.0-1.0) k/mm3 Sodium (132-142) mmol/L Potassium (3.4-4.6) mmol/L Chloride (97-106) mmol/L Carbon Dioxide 9.8 L 10.9 L (24-32.6) mmol/L Anion Gap 25.8 H 25.4 H (6.8-13.8) mmol/L Random Glucose 266 H 231 H (70-110) mg/dL Calcium 7.8 L (7.9-10.9) mg/dL Calcium Adj for Albumin 8.1 L 8.2 L (8.4-10.2) mg/dL Total Protein (6.2-8.2) gm/dL Albumin 3.2 L 3.2 L (3.4-5.0) gm/dl Gastric Occult Blood Positive H 03/31/18 03/31/18 03/31/18 Range/Units 04:55 08:49 08:49 WBC 14.1 H D (4.0-10.5) K/mm3 RBC 4.04 L (4.7-6.0) M/mm3 Hgb 12.7 L (13.5-18.0) gm/dL Hct 35.4 L (42.0-52.0) % MCH 31.4 H (27-31) pg Immature Gran % (Auto) 0.80 H (0.001-0.429) % Immature Gran # (Auto) 0.11 H (0.000-0.0310) K/mm3 Neutrophils % 85.3 H (42-75.0) % Lymphocytes % 6.0 L (20-51) % Neutrophils # 12.0 H (1.3-6.0) K/mm3 Lymphocytes # 0.85 L (1.5-3.5) k/mm3 Monocytes # 1.1 H (0.0-1.0) k/mm3 Sodium (132-142) mmol/L Potassium (3.4-4.6) mmol/L Chloride 107 H 107 H (97-106) mmol/L Carbon Dioxide 12.7 L 15.3 L (24-32.6) mmol/L Anion Gap 22.3 H 19.4 H (6.8-13.8) mmol/L Random Glucose 203 H 194 H (70-110) mg/dL Calcium 7.7 L 7.7 L (7.9-10.9) mg/dL Calcium Adj for Albumin 8.2 L 8.3 L (8.4-10.2) mg/dL Total Protein 5.9 L (6.2-8.2) gm/dL Albumin 3.0 L 2.8 L (3.4-5.0) gm/dl Gastric Occult Blood - Exam Constitutional: Present: Alert, Oriented x3, Cooperative ENT Exam: Present: hearing grossly normal Respiratory: Present: lungs clear, normal breath sounds Cardiovascular/Chest: Present: regular rate, rhythm, no edema, no murmur Extremity: Present: normal inspection Skin Exam: Present: normal color, warm/dry, no cyanosis Assessment/Plan Plan Narrative: DKA is improving. pH 7.2 today, up from 7.0. Bicarb and anion gap are improved. Elevated creatinine is back to normal today. Hemoglobin has trended down a little with fluid but not significant to suggest active profuse bleeding. Gastric contents were positive for blood but suspect this has stopped or is very minimal. Consider outpatient endoscopy unless hemoglobin significantly drops. - Problems/Diagnosis (1) DKA (diabetic ketoacidosis) Problem: Acute Qualifiers: Diabetes mellitus type: type 1 Diabetes mellitus complication detail: without coma Qualified Code(s): E10.10 - Type 1 diabetes mellitus with ketoac idosis without coma
[2018-03-31 13:14] LABS: Hematocrit 34.3 % (42.0-52.0); Hemoglobin 12.4 gm/dL (13.5-18.0); Mean Cell Volume 89.1 fl (78-100); Mean Corpuscular Hemoglobin 32.2 pg (27-31); Mean Corpuscular Hgb Conc 36.2 g/dl (32-36); Mean Platelet Volume 9.5 fl (8-11.3); Neutrophil # 11.3 K/mm3 (1.3-6.0); Neutrophil % 83.6 % (42-75.0); Platelet Count 207 K/mm3 (150-450); Red Blood Count 3.85 M/mm3 (4.7-6.0); Red Cell Distribution Width 12.6 % (11.5-14.0); White Blood Count 13.5 K/mm3 (4.0-10.5)
[2018-03-31 13:30] LABS: Albumin * 2.7 gm/dl (3.4-5.0); Anion Gap 19.2 mmol/L (6.8-13.8); BUN/Creatinine Ratio 8.8 (9.0-21.6); Bilirubin, Total 0.8 mg/dL (0.0-1.1); Ca. Corrected For Albumin 8.5 mg/dL (8.4-10.2); Calcium * 7.8 mg/dL (7.9-10.9); Carbon Dioxide 14.5 mmol/L (24-32.6); Potassium 3.7 mmol/L (3.4-4.6); Total Protein 5.6 gm/dL (6.2-8.2)
[2018-03-31] MEDS: INSULIN REGULAR, HUMAN 100 UNITS in NORMAL SALINE 100 ML IV PRN ×2 (15:15)
[2018-03-31] MEDS ORDERED: POTASSIUM CHLORIDE 20 MEQ in DEXTROSE 5%-0.5 NORMAL SALINE 1,000 ML IV PRN (15:40)
[2018-03-31] MEDS: POTASSIUM CHLORIDE 20 MEQ in DEXTROSE 5%-0.5 NORMAL SALINE 1,000 ML IV SCH ×2 (15:57→20:14)
[2018-03-31 21:19] LABS: Anion Gap 19.4 mmol/L (6.8-13.8); BUN/Creatinine Ratio 7.4 (9.0-21.6); Calcium * 7.7 mg/dL (7.9-10.9); Estimated Creat Clear 88.1; Potassium 3.4 mmol/L (3.4-4.6)
[2018-04-01 00:32] LABS: Anion Gap 15.4 mmol/L (6.8-13.8); Calcium * 8.1 mg/dL (7.9-10.9); Carbon Dioxide 17.2 mmol/L (24-32.6); Potassium 3.6 mmol/L (3.4-4.6)
[2018-04-01] MEDS: PANTOPRAZOLE SODIUM 40 MG in NORMAL SALINE 100 ML IV SCH ×2 (00:55→11:47)
[2018-04-01] MEDS: POTASSIUM CHLORIDE 20 MEQ in DEXTROSE 5%-0.5 NORMAL SALINE 1,000 ML IV SCH ×2 (01:45→07:07)
[2018-04-01 03:21] LABS: Anion Gap 12.2 mmol/L (6.8-13.8); BUN/Creatinine Ratio 4.6 (9.0-21.6); Calcium * 7.8 mg/dL (7.9-10.9); Carbon Dioxide 21.2 mmol/L (24-32.6); Estimated Creat Clear 87.3; Potassium 3.4 mmol/L (3.4-4.6)
[2018-04-01 06:35] LABS: Anion Gap 11.3 mmol/L (6.8-13.8); Calcium * 7.9 mg/dL (7.9-10.9); Estimated Creat Clear 95.2; Potassium 3.3 mmol/L (3.4-4.6)
--- NOTE | 2018-04-01 08:32 | PN ---
Subjective - Date and Time Seen Date: 04/01/18 Time: 08:32 Subjective Narrative: Eduardo did well overnight. No more issues vomiting though still slightly nauseated. VSS were stable and he slept well. His labs have significantly improved, his gap is now closed. He is wanting to try to eat. Objective - Review of Systems Generalized/Overall Review: Reports: Fatigue EENTM: Reports: No Symptoms Reported Respiratory: Reports: No Symptoms Reported Cardiac: Reports: No Symptoms Reported Abdominal: Reports: Nausea. Denies: Vomiting, Hematemesis Genitourinary Symptoms: Reports: No Symptoms Reported Musculoskeletal Complaints: Reports: No Symptoms Reported Neurological: Reports: No Symptoms Reported Skin: Reports: No Symptoms Reported - Vitals Vitals: Last Vital Signs Temp 37.0 C 04/01/18 06:00 Pulse 89 04/01/18 07:45 Resp 16 04/01/18 07:45 BP 119/65 04/01/18 07:45 Pulse Ox 98 04/01/18 07:45 - Abnormal Lab Findings Abnormal Lab Findings: Abnormal Lab Results 03/31/18 03/31/18 03/31/18 Range/Units 08:49 08:49 13:08 WBC 14.1 H D (4.0-10.5) K/mm3 RBC 4.04 L (4.7-6.0) M/mm3 Hgb 12.7 L (13.5-18.0) gm/dL Hct 35.4 L (42.0-52.0) % MCH 31.4 H (27-31) pg MCHC (32-36) g/dl Immature Gran % (Auto) 0.80 H (0.001-0.429) % Immature Gran # (Auto) 0.11 H (0.000-0.0310) K/mm3 Neutrophils % 85.3 H (42-75.0) % Lymphocytes % 6.0 L (20-51) % Neutrophils # 12.0 H (1.3-6.0) K/mm3 Lymphocytes # 0.85 L (1.5-3.5) k/mm3 Monocytes # 1.1 H (0.0-1.0) k/mm3 VBG pH 7.252 L (7.32-7.43) Potassium (3.4-4.6) mmol/L Chloride 107 H (97-106) mmol/L Carbon Dioxide 15.3 L (24-32.6) mmol/L Anion Gap 19.4 H (6.8-13.8) mmol/L BUN (6-23) mg/dL BUN/Creatinine Ratio (9.0-21.6) Random Glucose 194 H (70-110) mg/dL Calcium 7.7 L (7.9-10.9) mg/dL Calcium Adj for Albumin 8.3 L (8.4-10.2) mg/dL Total Protein 5.9 L (6.2-8.2) gm/dL Albumin 2.8 L (3.4-5.0) gm/dl 03/31/18 03/31/18 03/31/18 Range/Units 13:08 13:08 21:09 WBC 13.5 H (4.0-10.5) K/mm3 RBC 3.85 L (4.7-6.0) M/mm3 Hgb 12.4 L (13.5-18.0) gm/dL Hct 34.3 L (42.0-52.0) % MCH 32.2 H (27-31) pg MCHC 36.2 H (32-36) g/dl Immature Gran % (Auto) 0.70 H (0.001-0.429) % Immature Gran # (Auto) 0.09 H (0.000-0.0310) K/mm3 Neutrophils % 83.6 H (42-75.0) % Lymphocytes % 7.9 L (20-51) % Neutrophils # 11.3 H (1.3-6.0) K/mm3 Lymphocytes # 1.07 L (1.5-3.5) k/mm3 Monocytes # (0.0-1.0) k/mm3 VBG pH (7.32-7.43) Potassium (3.4-4.6) mmol/L Chloride 108 H (97-106) mmol/L Carbon Dioxide 14.5 L 15.0 L (24-32.6) mmol/L Anion Gap 19.2 H 19.4 H (6.8-13.8) mmol/L BUN (6-23) mg/dL BUN/Creatinine Ratio 8.8 L 7.4 L (9.0-21.6) Random Glucose 209 H 243 H (70-110) mg/dL Calcium 7.8 L 7.7 L (7.9-10.9) mg/dL Calcium Adj for Albumin (8.4-10.2) mg/dL Total Protein 5.6 L (6.2-8.2) gm/dL Albumin 2.7 L (3.4-5.0) gm/dl 04/01/18 04/01/18 04/01/18 Range/Units 00:09 03:10 06:10 WBC (4.0-10.5) K/mm3 RBC (4.7-6.0) M/mm3 Hgb (13.5-18.0) gm/dL Hct (42.0-52.0) % MCH (27-31) pg MCHC (32-36) g/dl Immature Gran % (Auto) (0.001-0.429) % Immature Gran # (Auto) (0.000-0.0310) K/mm3 Neutrophils % (42-75.0) % Lymphocytes % (20-51) % Neutrophils # (1.3-6.0) K/mm3 Lymphocytes # (1.5-3.5) k/mm3 Monocytes # (0.0-1.0) k/mm3 VBG pH (7.32-7.43) Potassium 3.3 L (3.4-4.6) mmol/L Chloride 108 H 108 H 107 H (97-106) mmol/L Carbon Dioxide 17.2 L 21.2 L 22.0 L (24-32.6) mmol/L Anion Gap 15.4 H (6.8-13.8) mmol/L BUN 5 L 5 L (6-23) mg/dL BUN/Creatinine Ratio 6.0 L 4.6 L 5.0 L (9.0-21.6) Random Glucose 201 H 196 H 203 H (70-110) mg/dL Calcium 7.8 L (7.9-10.9) mg/dL Calcium Adj for Albumin (8.4-10.2) mg/dL Total Protein (6.2-8.2) gm/dL Albumin (3.4-5.0) gm/dl - Exam Constitutional: Present: Alert, Oriented x3, Cooperative Respiratory: Present: chest non-tender, lungs clear, normal breath sounds Cardiovascular/Chest: Present: normal peripheral pulses, regular rate, rhythm, no chest tenderness Abdomen: Present: Normal bowel sounds, soft, nontender /Rectal: Present: Exam deferred Extremity: Present: normal range of motion, normal inspection Skin Exam: Present: normal color, warm/dry Neurologic: Present: alert, oriented x 3 Eye contact: Present: cooperative, good eye contact, normal speech Thoughts: Present: normal thought pattern, normal mood /affect Assessment/Plan - Problems/Diagnosis (1) DKA (diabetic ketoacidosis) Problem: Acute Qualifiers: Diabetes mellitus type: type 1 Diabetes mellitus complication detail: without coma Qualified Code(s): E10.10 - Type 1 diabetes mellitus with ketoacidosis without coma Narrative: His gap has closed. Will recheck a VBG. His potassium has dropped slightly but this was expected with the amount of insulin that he has been getting, will replace. Stopped D5 1/2 NS. Resumed home insulin and sliding scale. Will advance his diet as tolerated (slowly). Likely home tomorrow. No longer vomiting, hemoglobin has been stable (though slightly low). Recommend outpatient EGD.
[2018-04-01] MEDS: POTASSIUM CHLORIDE IN WATER 100 ML IV SCH ×3 (09:05→12:08)
[2018-04-01] MEDS: POLYETHYLENE GLYCOL 3350 119 GM BTL PO SCH (09:05)
[2018-04-01] MEDS: INSULIN GLARGINE,HUM.REC.ANLOG 100 UNITS/ML VIAL SC SCH (09:44)
[2018-04-01] MEDS ORDERED: ACETAMINOPHEN 325 MG TABLET PO PRN (11:18)
[2018-04-01] MEDS: INSULIN LISPRO 100 UNITS/ML VIAL SC SCH ×3 (11:50→22:28)
[2018-04-01 11:51] LABS: Venous Blood Gas HCO3 17.4 mmol/L (22.0-29.0); Venous Blood Gas pH 7.36 (7.32-7.43)
[2018-04-01] MEDS ORDERED: INSULIN LISPRO 100 UNITS/ML VIAL SC ONE (21:24)
[2018-04-02] MEDS: PANTOPRAZOLE SODIUM 40 MG in NORMAL SALINE 100 ML IV SCH (00:51)
[2018-04-02] MEDS: ONDANSETRON HCL/PF 2 MG/ML VIAL IV PRN (07:10)
[2018-04-02] MEDS: INSULIN LISPRO 100 UNITS/ML VIAL SC SCH ×2 (07:11→11:15)
[2018-04-02 07:46] LABS: Anion Gap 7.2 mmol/L (6.8-13.8); BUN/Creatinine Ratio 6.2 (9.0-21.6); Calcium * 8.1 mg/dL (7.9-10.9); Carbon Dioxide 29.9 mmol/L (24-32.6); Estimated Creat Clear 146.4; Potassium 3.1 mmol/L (3.4-4.6)
[2018-04-02] MEDS: INSULIN GLARGINE,HUM.REC.ANLOG 100 UNITS/ML VIAL SC SCH (08:40)
[2018-04-02] MEDS: POLYETHYLENE GLYCOL 3350 119 GM BTL PO SCH (08:40)
[2018-04-02] MEDS ORDERED: POTASSIUM CHLORIDE 20 MEQ TABLET.SA PO ONE (09:54)
--- NOTE | 2018-04-02 11:51 | DS ---
(1) DKA (diabetic ketoacidosis) Problem: Acute Qualifiers: Diabetes mellitus type: type 1 Diabetes mellitus complication detail: without coma Qualified Code(s): E10.10 - Type 1 diabetes mellitus with ketoacidosis without coma Description of Stay: 48 yo CM with Type 1 DM was admitted for DKA. Initial blood gas was 7.00 with a PCO2 of 14.9.His initial gap was 37, He also had serum ketones, sugar in his urine, intial glucose was 528, and an elevated WBC with no shift. He endorses nausea/vomiting before arrival which continued for the first 2 days while being here. The emesis was found to be heme+ but was minimal and it was determined that he could have an outpatient EGD. His H/H was initially 15.4/44.4 and trending down to 12.4/34.3 which likely was more dilutional than actual acute blood loss as he stopped having hematemesis (which was minimal to begin with) after being here for 24 hrs. He was started on the DKA protocol. His lab work improved daily, his gap closed on day 3 and was 7.2 on day 4. His glucose was 180 at time of discharge. He states that he is normally well controlled, his last A1c was [address] Martínez so no changes were made during this stay. His WBC trended down to 13.5, he had no signs of infection and his vitals were stable once his tachycardia (high of 128) resolved after he was started on fluids. Once his gap closed, he was transitioned to his regular insulin and allowed to eat. He tolerated PO intake with out recurring emesis. He was minimally nauseous but overall did well. Will have him follow up with his PCP this week where they can discuss this stay as well as getting him a referral to gen surg for an EGD to look for the source of the bleeding. It is likely from gastritis. advised the patient to limit his alcohol intake as it is most likely what sent him into DKA as well as what has caused the bleeding. No concern for varices at this time. Procedures Performed: none Results and Findings: Lab Pending Results 03/30/18 10:43: WBC 26.7 H, RBC 4.87, Hgb 15.4, Hct 44.4, MCV 91.2, MCH 31.6 H, MCHC 34.7, RDW 11.9, Plt Count 365, MPV 9.6, Immature Gran % (Auto) 1.50 H, Immature Gran # (Auto) 0.41 H, Neutrophils % 86.2 H, Neutrophils % (Manual) 66, Band Neuts % (Manual) 26 H, Lymphocytes % 4.5 L, Lymphocytes % (Manual) 5 L, Monocytes % 7.5, Monocytes % (Manual) 3, Eosinophils % 0.0, Basophils % 0.3, Nucleated RBC % 0.0, Neutrophils # 23.0 H, Neutrophils # (Manual) 17.6 H, Lymphocytes # 1.20 L, Lymphocytes # (Manual) 1.3 L, Monocytes # 2.0 H, Monocytes # (Manual) 0.8, Eosinophils # 0.0, Absolute Basophils 0.1, Toxic Vacuolation 1+, Dohle Bodies 2+, Platelet Estimate Normal 03/30/18 10:43: Sodium 131 L, Plasma Sodium 138, Potassium 5.2 H, Chloride 93 L, Carbon Dioxide 5.8 L, Anion Gap 37.4 H, BUN 25 H D, Creatinine 1.67 H D, Est GFR (Non-Af Amer) 47 L D, BUN/Creatinine Ratio 15.0, Random Glucose 528 H*, Calcium 8.4, Calcium Adj for Albumin 8.5, Total Bilirubin 0.7, AST 16, ALT 24, Alkaline Phosphatase 160, Total Protein 7.1, Albumin 3.5, Serum Ketones Positive - 20mg/dl H 03/30/18 10:43: Lactic Acid, Venous 3.0 H* 03/30/18 10:49: Influenza Type A Ag Negative, Influenza Type B Ag Negative 03/30/18 10:52: pCO2 Less than 14.9 L*, pO2 138.3 H, HCO3 2.6 L, Total CO2 2.9 L, Base Excess -26.8 L, ABG pH 7.00 L*, ABG O2 Sat (Measured) 97.3 03/30/18 11:47: Urine Color Yellow, Urine Appearance Clear, Urine pH 5.5, Ur Specific [place] >=1.030, Urine Protein 30 H, Urine Glucose (UA) >=1000 H, Urine Ketones Large, Urine Blood 25 H, Urine Nitrate Negative, Urine Bilirubin 1 H, Urine Ictotest Negative, Prot Sulfosalicylic Acd 1+, Urine Urobilinogen Normal, Ur Leukocyte Esterase Negative, Urine RBC 0-5, Urine WBC None seen, Ur Epithelial Cells None seen, Amorphous Sediment Trace, Urine Bacteria None seen, Urine Culture Comments No culture indicated 03/30/18 13:45: Lactic Acid, Venous 1.0 03/30/18 13:45: Sodium 132, Plasma Sodium 136, Potassium 4.7 H, Chloride 99, Carbon Dioxide 7.2 L, Anion Gap 30.5 H, BUN 22, Creatinine 1.29, Est GFR (Non-Af Amer) 63 D, BUN/Creatinine Ratio 17.1, Random Glucose 353 H D, Calcium 7.6 L, Calcium Adj for Albumin 7.9 L, Total Bilirubin 0.7, AST 15, ALT 22, Alkaline Ph osphatase 144, Troponin I Less than 0.017, Total Protein 6.5, Albumin 3.2 L 03/30/18 13:45: WBC 23.9 H, RBC 4.60 L, Hgb 14.4, Hct 40.7 L, MCV 88.5, MCH 31.3 H, MCHC 35.4, RDW 11.9, Plt Count 284, MPV 9.5 03/30/18 16:55: Sodium 131 L, Plasma Sodium 134, Potassium 5.0 H, Chloride 101, Carbon Dioxide 6.4 L, Anion Gap 28.6 H, BUN 20, Creatinine 1.29, Est GFR (Non-Af Amer) 63, BUN/Creatinine Ratio 15.5, Random Glucose 314 H, Calcium 7.8 L, Calcium Adj for Albumin 8.0 L, Total Bilirubin 0.8, AST 16, ALT 26, Alkaline Phosphatase 156, Total Protein 6.7, Albumin 3.3 L 03/30/18 17:18: Gastric Occult Blood Positive H 03/30/18 21:07: Sodium 134, Plasma Sodium 137, Potassium 4.6, Chloride 103, Carbon Dioxide 9.8 L, Anion Gap 25.8 H, BUN 16, Creatinine 1.23, Est GFR (Non-Af Amer) 66, BUN/Creatinine Ratio 13.0, Random Glucose 266 H, Calcium 7.8 L, Calcium Adj for Albumin 8.1 L, Total Bilirubin 0.8, AST 16, ALT 21, Alkaline Phosphatase 142, Total Protein 6.7, Albumin 3.2 L 03/31/18 00:45: Sodium 137, Plasma Sodium 139, Potassium 4.3, Chloride 105, Carbon Dioxide 10.9 L, Anion Gap 25.4 H, BUN 15, Creatinine 1.24, Est GFR (Non- Af Amer) 66, BUN/Creatinine Ratio 12.1, Random Glucose 231 H, Calcium 7.9, Calcium Adj for Albumin 8.2 L, Total Bilirubin 0.9, AST 17, ALT 24, Alkaline Phosphatase 145, Total Protein 6.5, Albumin 3.2 L 03/31/18 04:55: Sodium 138, Plasma Sodium 140, Potassium 4.0, Chloride 107 H, Carbon Dioxide 12.7 L, Anion Gap 22.3 H, BUN 13, Creatinine 1.21, Est GFR (Non- Af Amer) 68, BUN/Creatinine Ratio 10.7, Random Glucose 203 H, Calcium 7.7 L, Calcium Adj for Albumin 8.2 L, Total Bilirubin 0.8, AST 16, ALT 23, Alkaline Phosphatase 137, Total Protein 6.2, Albumin 3.0 L 03/31/18 08:49: Sodium 138, Plasma Sodium 140, Potassium 3.7, Chloride 107 H, Carbon Dioxide 15.3 L, Anion Gap 19.4 H, BUN 11, Creatinine 1.18, Est GFR (Non- Af Amer) 70, BUN/Creatinine Ratio 9.3, Random Glucose 194 H, Calcium 7.7 L, Calcium Adj for Albumin 8.3 L, Total Bilirubin 0.9, AST 12, ALT 23, Alkaline Phosphatase 131, Total Protein 5.9 L, Albumin 2.8 L 03/31/18 08:49: WBC 14.1 H D, RBC 4.04 L, Hgb 12.7 L, Hct 35.4 L, MCV 87.6, MCH 31.4 H, MCHC 35.9, RDW 12.3, Plt Count 214, MPV 8.8, Immature Gran % (Auto) 0.80 H, Immature Gran # (Auto) 0.11 H, Neutrophils % 85.3 H, Lymphocytes % 6.0 L, Monocytes % 7.7, Eosinophils % 0.1, Basophils % 0.1, Nucleated RBC % 0.0, Neutrophils # 12.0 H, Lymphocytes # 0.85 L, Monocytes # 1.1 H, Eosinophils # 0.0, Absolute Basophils 0.0 03/31/18 13:08: VBG pH 7.252 L 11/16/18 13:08: Sodium 138, Plasma Sodium 140, Potassium 3.7, Chloride 108 H, Carbon Dioxide 14.5 L, Anion Gap 19.2 H, BUN 10, Creatinine 1.14, Est GFR (Non- Af Amer) 73, BUN/Creatinine Ratio 8.8 L, Random Glucose 209 H, Calcium 7.8 L, Calcium Adj for Albumin 8.5, Total Bilirubin 0.8, AST 12, ALT 20, Alkaline Phosphatase 120, Total Protein 5.6 L, Albumin 2.7 L 03/31/18 13:08: WBC 13.5 H, RBC 3.85 L, Hgb 12.4 L, Hct 34.3 L, MCV 89.1, MCH 32.2 H, MCHC 36.2 H, RDW 12.6, Plt Count 207, MPV 9.5, Immature Gran % (Auto) 0.70 H, Immature Gran # (Auto) 0.09 H, Neutrophils % 83.6 H, Lymphocytes % 7.9 L, Monocytes % 7.6, Eosinophils % 0.1, Basophils % 0.1, Nucleated RBC % 0.0, Neutrophils # 11.3 H, Lymphocytes # 1.07 L, Monocytes # 1.0, Eosinophils # 0.0, Absolute Basophils 0.0 03/31/18 20:15: Potassium 3.4 03/31/18 21:09: Sodium 137, Plasma Sodium 139, Potassium 3.4, Chloride 106, Carbon Dioxide 15.0 L, Anion Gap 19.4 H, BUN 8, Creatinine 1.08, Est GFR (Non-Af Amer) 77, BUN/Creatinine Ratio 7.4 L, Random Glucose 243 H, Calcium 7.7 L 03/31/18 23:20: Potassium 3.6 04/01/18 00:09: Sodium 137, Plasma Sodium 139, Potassium 3.6, Chloride 108 H, Carbon Dioxide 17.2 L, Anion Gap 15.4 H, BUN 7, Creatinine 1.16, Est GFR (Non-Af Amer) 71, BUN/Creatinine Ratio 6.0 L, Random Glucose 201 H, Calcium 8.1 04/01/18 03:10: Sodium 138, Plasma Sodium 140, Potassium 3.4, Chloride 108 H, Carbon Dioxide 21.2 L, Anion Gap 12.2, BUN 5 L, Creatinine 1.09, Est GFR (Non-Af Amer) 76, BUN/Creatinine Ratio 4.6 L, Random Glucose 196 H, Calcium 7.8 L 04/01/18 06:10: Sodium 137, Plasma Sodium 139, Potassium 3.3 L, Chloride 107 H, Carbon Dioxide 22.0 L, Anion Gap 11.3, BUN 5 L, Creatinine 1.00, Est GFR (Non-Af Amer) 84, BUN/Creatinine Ratio 5.0 L, Random Glucose 203 H, Calcium 7.9 04/01/18 11:45: pCO2 31.3 L, pO2 77.9 H, HCO3 17.4 L, Total CO2 18.3 L, Base Excess -6.9 L, ABG pH 7.36, VBG O2 Saturation 95.3 04/02/18 07:20: Sodium 137, Plasma Sodium 138, Potassium 3.1 L, Chloride 103, Carbon Dioxide 29.9, Anion Gap 7.2, BUN 4 L, Creatinine 0.65, Est GFR (Non-Af Amer) 139 H D, BUN/Creatinine Ratio 6.2 L, Random Glucose 180 H, Calcium 8.1 Discharge Location: Home Disposition: Home self-care Condition: Good Discharge Activity: Activity as tolerated Discharge Diet: Consistent carbs Referrals: Elton Martínez DO [Primary Care Provider] - One Week Complete Home Medications List: Complete Home Medication List: Insulin Glargine,Hum.rec.anlog [Lantus] 20 units SC DAILY@1230 12/19/16 Insulin Lispro [Humalog] See Protocol SQ ACHS 03/30/18
[2018-04-02 14:35] VITALS: BP 120/77
== END 2018-04-02 12:40 | disposition home or self-care (01) | DRG 639 ==
LOC: ER 10:22 → SCU 11:25 → MS 04-01 08:29
PROVIDERS: ADMIT Family Medicine; ATTEND Family Medicine
CPT/HCPCS: 36415; 36416; 36600; 71010; 71045; 74000; 74018; 80048; 80053; 81001; 82009; 82272; 82800; 82803; 83605; 84132; 84484; 85007; 85025; 85027; 87400; 87449; 90686; 93005; 96361; 96365; 96375; 99285; J2405

== ENCOUNTER 2019-08-13 11:36 | Inpatient (IN) ==
--- NOTE | 2019-08-13 11:53 | ERNOTE ---
Medical Problem HPI - Narrative Date of Service: 08/13/19 - General Chief Complaint: General Assessment Time Seen by Provider: 08/13/19 11:39 Source: patient Exam Limitations: no limitations - Immun/Allergies/Home Medications Immunizations: IMMUNIZATION HX Immunizations Up to Date Yes History of Influenza Vaccine Yes Hx Pneumococcal Vaccination No Allergies/Adverse Reactions: Allergies No Known Allergies Allergy (Verified 08/13/19 11:49) Home Medications: HOME MEDICATIONS Insulin Glargine,Hum.rec.anlog [Lantus] 20 units SC DAILY@1230 12/19/16 [Last Taken 01/12/19] Insulin Lispro [Humalog] See Protocol SQ ACHS 03/30/18 [Last Taken 01/12/19] acetaminophen 325 mg tablet 650 mg PO Q6H PRN tab 07/21/18 [Last Taken 07/24/18] duloxetine 30 mg capsule,delayed release 30 mg PO DAILY 07/21/18 [Last Taken 01/11/19] tadalafil 20 mg tablet 20 mg PO DAILY PRN #30 tab 07/26/18 [Last Taken Unknown] blood sugar diagnostic See Dose Instructions .ROUTE .MEDSUPPLY #100 ea 02/08/19 [Last Taken Unknown] blood sugar diagnostic See Rx Instructions .ROUTE .MEDSUPPLY #50 ea 05/23/19 [Last Taken Unknown] Humalog KwikPen Insulin 100 unit/mL subcutaneous See Rx Instructions SUBCUT QID #36 ml NS 07/12/19 [Last Taken Unknown] - History of Present History Narrative: 49 yr old male with history of insulin dependent type 1 DM, DKA, HLD, erectile dysfunction, HTN, neuropathy and depression presents with two days of N/V and high blood sugars. Reports emesis of 4 - 5 times yesterday and today. Denies any diarrhea. Denies any SOB or new cough. States has had a dry cough the past two months. Denies any fever. Complains of generalized muscle aching and generalized weakness. Reports dry mouth, decreased appetite and decreased urination. Doesn't remember the last time he had DKA. His blood sugars usually run in the 120's. Date (Duration): 08/13/19 Time (Timing): 11:52 Timing: getting worse Severity: moderate Modifying Factors - (Improves): Present: other - Nothing Modifying Factors - (Worsens): Present: other - Nothing Review of Systems - Review of Systems Constitutional: Present: weakness, decreased activity level. Absent: fever EYE: Present: no symptoms reported ENT: Present: no symptoms reported Respiratory: Present: cough - x 2 months . Absent: shortness of breath Cardiology: Absent: chest pain Gastrointestinal/Abdominal: Present: nausea, vomiting, eating less, drinking less. Absent: diarrhea Genitourinary: Present: decreased urinary output Musculoskeletal: Present: muscle pain - Generalized muscle aching Skin: Present: no symptoms reported Neurological: Present: no symptoms reported Endocrine: Present: no symptoms reported Hematologic/Lymphatic: Present: no symptoms reported Psych: Present: no symptoms reported All Other Systems: All systems neg except as marked Medical History (Last Reviewed 08/13/19 @ 12:05 by EVIE Crowe) Depression Onset Date: Unknown Diabetes mellitus Onset Date: Unknown Erectile dysfunction Onset Date: Unknown Essential hypertension Onset Date: ~06/10/11 Hyperlipidemia Onset Date: Unknown Metacarpal bone fracture Onset Date: 07/08/18 right 4th Neuropathy Onset Date: Unknown bilateral feet Diabetic eye exam Onset Date: Unknown IEC - no evidence of diabetic retinopathy found in either eye. Surgical History: Surgical History (Last Reviewed 08/13/19 @ 12:05 by EVIE Crowe) History of cystoscopy Onset Date: 03/19/19 Dr. Hoang Cordero, [facility]. History of hand surgery Onset Date: 08/31/18 Dr. Tyler Busby, [facility]. Right. [place] wire removal right fourth metacarpal. History of open reduction and internal fixation (ORIF) procedure Onset Date: 07/25/18 Dr. Tyler Busby [facility]. Closed reduction and percutaneous pinning of right fourth metacarpal neck fracture. S/P epidural steroid injection Onset Date: 11/13/13 L4-L5. [place] teeth extracted Onset Date: Unknown Family History: Family History (Last Reviewed 08/13/19 @ 12:05 by EVIE Crowe) Mother No pertinent past medical history Father No pertinent past medical history Social History: (Last Reviewed 08/13/19 @ 12:05 by EVIE Crowe) Social History: adopted: No fci: No Marital status: lives independently: No household members: none number of children: 2 caregiver/support person: No current occupational status: employed current occupation: [employer] driver Highest education level completed: some college, no degree Service: No Tobacco: Smoking Status: Never smoker Smokeless tobacco user: chewing tobacco Alcohol: alcohol intake: current Alcohol type: beer alcohol intake frequency: a few times a week Dietary Habits: caffeine: Yes caffeine comment: 1 Type: coffee Physical Exam - Physical Exam General Appearance: Present: wd/wn, alert, no apparent distress Head Exam: Present: normal inspection, no evidence of injury Eye Exam: Normal inspection: bilateral, PERRL: bilateral, EOMI: bilateral Ears, Nose, Throat: Present: normal except -, normal pharynx, dry mucous membra [place]raham Neck: Present: normal inspection, nontender Respiratory: Present: no respiratory distress, normal breath sounds, no accessory muscle use, chest nontender, lungs clear Cardiovascular/Chest: Present: regular rate, rhythm, no murmur, normal peripheral pulses Gastrointestinal/Abdominal: Present: nondistended, soft, tenderness - mild generalized tenderness , abnormal bowel sounds - decreased Extremity Exam: Present: normal inspection, non-tender, normal range of motion, no edema Neurological Exam: Present: alert, oriented, normal mood/affect, no motor/sensory deficits Skin Exam: Present: normal color, warm/dry Progress - Results and Orders Patient's Lab Results:: I have reviewed the patient's lab results. Results and Orders: Laboratory Tests 08/13/19 12:12 WBC 8.5 Hgb 15.8 Hct 45.4 Plt Count 301 Laboratory Tests 08/13/19 08/13/19 12:37 12:50 pCO2 27.4 L pO2 104.3 HCO3 10.9 L Total CO2 11.8 L Base Excess -15.1 L ABG pH 7.22 L ABG O2 Sat (Measured) 96.8 Urine Color Yellow Urine Appearance Clear Urine pH 5.5 Ur Specific [place] 1.025 Urine Protein Negative Urine Glucose (UA) >=1000 H Urine Ketones Large Urine Blood Negative Urine Nitrate Negative Urine Bilirubin Negative Urine Urobilinogen Normal Ur Leukocyte Esterase Negative Urine RBC None seen Urine WBC 0-5 Ur Epithelial Cells 0-5 Urine Bacteria Trace - Vital Signs Patient's Vital Signs:: I have reviewed the patient's vital signs. Vital Signs: Vital Signs 08/13/19 11:46 Temperature 36.9 C Pulse Rate 101 H Respiratory Rate 16 Blood Pressure 125/74 O2 Sat by Pulse Oximetry 99 - Progress/Reassessment Chief Complaint: General Assessment Progress:: Improved Progress Note-Subjective: 08/13/19 14:46 Test results, etiology and treatment plan discussed. IV fluids and insulin started in ER. Blood sugar came down to 299 Dr. Martínez had sent him out here for evaluation. Dr. Martínez accepts him for admission to the floor for IV fluids, IV insulin and monitoring. Plan - Plan Plan: Admit to the hospital Departure Clinical Impression: DKA (diabetic ketoacidosis) Qualifiers: Diabetes mellitus type: type 1 Diabetes mellitus complication detail: without coma Qualified Code(s): E10.10 - Type 1 diabetes mellitus with ketoacidosis without coma - Departure Disposition: Still a patient Condition: Good
[2019-08-13] MEDS ORDERED: KETOROLAC TROMETHAMINE 30 MG/ML VIAL IV ONE (12:00)
[2019-08-13] MEDS ORDERED: NORMAL SALINE 1,000 ML IV ONE (12:00)
[2019-08-13] MEDS ORDERED: ONDANSETRON HCL/PF 2 MG/ML VIAL IV ONE (12:00)
[2019-08-13 12:13] LABS: Hematocrit 45.4 % (42.0-52.0); Hemoglobin 15.8 gm/dL (13.5-18.0); Mean Cell Volume 89.2 fl (78-100); Mean Corpuscular Hgb Conc 34.8 g/dl (32-36); Mean Platelet Volume 9.5 fl (8-11.3); Neutrophil # 6.5 K/mm3 (1.3-6.0); Neutrophil % 76.4 % (42-75.0); Platelet Count 301 K/mm3 (150-450); Red Blood Count 5.09 M/mm3 (4.7-6.0); Red Cell Distribution Width 11.2 % (11.5-14.0); White Blood Count 8.5 K/mm3 (4.0-10.5)
[2019-08-13 12:29] LABS: ALT 27 U/L (19-67); AST 19 U/L (0-48); Albumin * 3.8 gm/dl (3.4-5.0); Alkaline Phosphatase * 190 U/L (50-170); Anion Gap 26.7 mmol/L (6.8-13.8); BUN/Creatinine Ratio 17.1 (9.0-21.6); Blood Urea Nitrogen 22 mg/dL (6-23); Ca. Corrected For Albumin 8.4 mg/dL (8.4-10.2); Calcium * 8.6 mg/dL (7.9-10.9); Carbon Dioxide 17.5 mmol/L (24-32.6); Chloride 89 mmol/L (97-106); Glucose * 413 mg/dL (70-110); Potassium 5.2 mmol/L (3.4-4.6); Sodium 128 mmol/L (132-142); Total Protein 7.3 gm/dL (6.2-8.2)
[2019-08-13 12:50] LABS: Urine Bilirubin Negative (NEGATIVE); Urine Blood Negative /ul (NEGATIVE); Urine Ketone Large mg/dL (NEGATIVE); Urine Nitrite Negative (NEGATIVE); Urine Protein Negative (NEGATIVE); Urine Specific Gravity 1.025 SP.GR. (1.005-1.030); Urine Urobilinogen Normal (NORMAL); Urine pH 5.5 pH (5.0-7.0)
[2019-08-13] MEDS ORDERED: INSULIN REGULAR, HUMAN 100 UNITS/ML VIAL IV ONE (12:57)
[2019-08-13 12:58] LABS: Urine Appearance Clear (CLEAR); Urine Bacteria TRACE; Urine Color Yellow; Urine RBC None Seen /hpf (0-5); Urine WBC 0-5 /hpf (0-5)
[2019-08-13] MEDS: POTASSIUM CHLORIDE 20 MEQ in NORMAL SALINE 1,000 ML IV SCH ×3 (14:20→17:39)
[2019-08-13] MEDS ORDERED: INSULIN REGULAR, HUMAN 100 UNITS in NORMAL SALINE 100 ML IV PRN ×2 (14:38)
[2019-08-13 15:17] LABS: Anion Gap 19.7 mmol/L (6.8-13.8); Carbon Dioxide 20.3 mmol/L (24-32.6)
[2019-08-13 17:45] LABS: Albumin * 3.1 gm/dl (3.4-5.0); Anion Gap 16.4 mmol/L (6.8-13.8); BUN/Creatinine Ratio 18.1 (9.0-21.6); Bilirubin, Total 0.6 mg/dL (0.0-1.1); Calcium * 7.6 mg/dL (7.9-10.9); Carbon Dioxide 21.7 mmol/L (24-32.6); Potassium 4.1 mmol/L (3.4-4.6)
[2019-08-13] MEDS ORDERED: ENOXAPARIN SODIUM 40 MG/0.4 ML SYRG SC SCH (17:45)
[2019-08-13 19:20] LABS: Anion Gap 11.9 mmol/L (6.8-13.8); Carbon Dioxide 25.2 mmol/L (24-32.6); Chloride 103 mmol/L (97-106); Potassium 4.1 mmol/L (3.4-4.6); Sodium 136 mmol/L (132-142)
[2019-08-13] MEDS: POTASSIUM CHLORIDE 20 MEQ in DEXTROSE 5%-0.5 NORMAL SALINE 990 ML IV SCH (19:53)
[2019-08-13] MEDS ORDERED: DEXTROSE 50%-WATER 50 ML SYRG IV ONE (20:00)
[2019-08-13] MEDS ORDERED: DEXTROSE 50%-WATER 50 ML SYRG ONE (20:01)
--- NOTE | 2019-08-13 21:00 | HP ---
Chief Complaint - Chief Complaint Date of Service: 08/13/19 Time of Service: 18:00 Chief Complaint: Diabetic ketoacidosis History of Present Illness: 49 year old M with PMHX of Insulin Dependent Mellitus type I, Essential HTN, HLD, chronic kidney disease stage II, diabetic Neuropathy, Erectile dysfunction, and depressive disorder presents [facility] emergency room with complaints of nausea and nonbloody nonbilious emesis for 3 days progressively getting worse. Primary care provider: Dr. Elton Martínez MD. Associated symptoms were intermittent disorientation, generalized body aches and weakness of distal upper and lower extremities, shortness of breath and dry cough, which is not new in onset and is been present for approximately 2-months. Shortly after he noticed an increase in blood sugars, associated with polyuria, polydipsia and decreased appetite. Patient reports 4-5 episodes of emesis since waking up today. Denies any diarrhea. Denies fever. Cannot recall last time he has been in DKA. Blood sugars usually run in the low 120s. Patient states his diabetes is well controlled. Last A1c obtained and June 06, 2018 was 10.6. On arrival to the emergency room, vital signs are stable. Work-up completed for suspected DKA versus HHS. Labs are significant for neutrophilia without leukocytosis, anion gap metabolic acidosis with respiratory compensation, hyponatremia (128), hyperkalemia (5.2), hyperglycemia of 413, ALP: 190, Glucosuria > 1000, Ketonuria (large), Trace Bacteria, No nitrates or Leukocyte esterase. EKG consistent with sinus tachycardia, right atrial enlargement, left atrial enlargement and nonspecific T wave abnormality. Cardiac panel and chest x-ray is pending. Started on DKA protocol and admitted to [facility]. Physical examination is largely unremarkable. Discussed treatment with the patient, voiced understanding and agreeable with plan. Medical History (Last Reviewed 08/13/19 @ 14:38 by Noni Oliveira RN) Depression Onset Date: Unknown Diabetes mellitus Onset Date: Unknown Erectile dysfunction Onset Date: Unknown Essential hypertension Onset Date: ~06/10/11 Hyperlipidemia Onset Date: Unknown Metacarpal bone fracture Onset Date: 07/08/18 right 4th Neuropathy Onset Date: Unknown bilateral feet Diabetic eye exam Onset Date: Unknown IEC - no evidence of diabetic retinopathy found in either eye. Surgical History: Surgical History (Last Reviewed 08/13/19 @ 14:38 by Noni Oliveira RN) History of cystoscopy Onset Date: 03/19/19 Dr. Hoang Cordero, [facility]. History of hand surgery Onset Date: 08/31/18 Dr. Tyler Busby [facility]. Right. [place] wire removal right fourth metacarpal. History of open reduction and internal fixation (ORIF) procedure Onset Date: 07/25/18 Dr. Tyler Busby [facility]. Closed reduction and percutaneous pinning of right fourth metacarpal neck fracture. S/P epidural steroid injection Onset Date: 11/13/13 L4-L5. [place] teeth extracted Onset Date: Unknown Family History: Family History (Last Reviewed 08/13/19 @ 14:38 by Noni Oliveira RN) Mother No pertinent past medical history Father No pertinent past medical history Social History: (Last Reviewed 08/13/19 @ 14:38 by Noni Oliveira RN) Social History: adopted: No alf: No Marital status: lives independently: No household members: none number of children: 2 caregiver/support person: No current occupational status: employed current occupation: [employer] Highest education level completed: some college, no degree Service: No Tobacco: Smoking Status: Never smoker Smokeless tobacco user: chewing tobacco Alcohol: alcohol intake: current Alcohol type: beer alcohol intake frequency: a few times a week Dietary Habits: caffeine: Yes caffeine comment: 1 Type: coffee Review Of Systems (GEN) - Review of Systems Generalized/Overall Review: Present: Weakness, Fatigue. Absent: Chills, Fever, Malaise, Diaphoresis EENTM: Present: Other - Mouth Respiratory: Present: Cough - Chronic and nonproductive, Shortness of Breath - intermittent. Absent: Orthopnea, Stridor, Wheezing Cardiac: Absent: Chest Pain, Edema, Palpitations Abdominal: Present: Nausea, Vomiting. Absent: Abdominal Pain, Constipation, Diarrhea Genitourinary: Present: Polyuria. Absent: Burning, Itching, Urgency, Frequency, Dysuria Musculoskeletal: Present: Muscle Pain - Generalized. Absent: Joint Pain, Back Pain, Joint Swelling Neurological: Present: Parasthesia - Secondary to diabetic neuropathy, Weakness - Generalized Skin: Present: Dryness - Skin and mouth Endocrine: Present: Increased Thirst, Other - decreased appetite. Absent: Increased Hunger Immunizations: IMMUNIZATION HX Immunizations Up to Date Yes History of Influenza Vaccine Yes Hx Pneumococcal Vaccination No Allergies/Adverse Reactions: Allergies Allergy/AdvReac Type Severity Reaction Status Date / Time No Known Allergies Allergy Verified 08/13/19 16:12 Home Medications: HOME MEDICATIONS Insulin Glargine,Hum.rec.anlog [Lantus] 20 units SC DAILY@1230 12/19/16 [Last Taken 01/12/19] Insulin Lispro [Humalog] See Protocol SQ ACHS 03/30/18 [Last Taken 01/12/19] acetaminophen 325 mg tablet 650 mg PO Q6H PRN tab 07/21/18 [Last Taken 07/24/18] blood sugar diagnostic See Dose Instructions .ROUTE .MEDSUPPLY #100 ea 02/08/19 [Last Taken Unknown] blood sugar diagnostic See Rx Instructions .ROUTE .MEDSUPPLY #50 ea 05/23/19 [Last Taken Unknown] Humalog KwikPen Insulin 100 unit/mL subcutaneous See Rx Instructions SUBCUT QID #36 ml NS 07/12/19 [Last Taken Unknown] Exam - Exam Vital Signs: Vital Signs - Last Taken Temp 37.0 C 08/13/19 20:32 Pulse 80 08/13/19 20:32 Resp 15 08/13/19 20:32 BP 114/74 08/13/19 20:32 Pulse Ox 100 08/13/19 20:32 Constitutional: Present: Alert, Oriented x3, Cooperative, Well developed, No distress ENT Exam: Present: hearing grossly normal Eye Exam: bilateral eye: normal inspection, PERRL, EOMI Neck: Present: non-tender, full range of motion, supple Back Exam: Present: normal inspection Respiratory: Present: chest non-tender, lungs clear, normal breath sounds, no respiratory distress, no accessory muscle use, No rales, No wheezing Cardiovascular/Chest: Present: normal peripheral pulses, regular rate, rhythm, no chest tenderness, no edema, no gallop, no JVD, no murmur Peripheral Pulses: carotid (R): 2+, carotid (L): 2+, dorsalis-pedis (R): 2+, dorsalis-pedis (L): 2+ Abdomen: Present: Normal bowel sounds, soft, nontender /Rectal: Present: Exam deferred Extremity: Present: normal range of motion, non-tender, normal inspection, no pedal edema, no calf tenderness, normal capillary refill - Evaluated after fluid resuscitation Skin Exam: Present: normal color, warm/dry Lymphatic: Present: no adenopathy Neurologic: Present: alert, normal mood/affect. Absent: dizzy/light-headedness Appearance: Present: appropriate appearance, appropriate insight, neat Eye contact: Present: cooperative, good eye contact, normal speech Thoughts: Present: normal thought pattern Diagnostic Studies: Abnormal Lab Results 08/13/19 08/13/19 08/13/19 Range/Units 12:12 12:12 12:37 RDW 11.2 L (11.5-14.0) % Immature Gran % (Auto) 0.50 H (0.001-0.429) % Immature Gran # (Auto) 0.04 H (0.000-0.0310) K/mm3 Neutrophils % 76.4 H (42-75.0) % Lymphocytes % 17.9 L (20-51) % Neutrophils # 6.5 H (1.3-6.0) K/mm3 pCO2 (35.0-48.0) mmHg pO2 (83.0-108.0) mmHg HCO3 (21.0-28.0) mmol/L Total CO2 (19.0-24.0) mmol/L Base Excess (-2.0-3.0) mmol/L ABG pH (7.35-7.45) Sodium 128 L (132-142) mmol/L Potassium 5.2 H (3.4-4.6) mmol/L Chloride 89 L (97-106) mmol/L Carbon Dioxide 17.5 L (24-32.6) mmol/L Anion Gap 26.7 H (6.8-13.8) mmol/L Random Glucose 413 H (70-110) mg/dL Calcium (7.9-10.9) mg/dL Calcium Adj for Albumin (8.4-10.2) mg/dL Alkaline Phosphatase 190 H (50-170) U/L Total Protein (6.2-8.2) gm/dL Albumin (3.4-5.0) gm/dl Urine Glucose (UA) >=1000 H (NEGATIVE) mg/dL Serum Ketones Positive - 20mg/dl H (NEGATIVE) 08/13/19 08/13/19 08/13/19 Range/Units 12:50 15:04 17:20 RDW (11.5-14.0) % Immature Gran % (Auto) (0.001-0.429) % Immature Gran # (Auto) (0.000-0.0310) K/mm3 Neutrophils % (42-75.0) % Lymphocytes % (20-51) % Neutrophils # (1.3-6.0) K/mm3 pCO2 27.4 L (35.0-48.0) mmHg pO2 (83.0-108.0) mmHg HCO3 10.9 L (21.0-28.0) mmol/L Total CO2 11.8 L (19.0-24.0) mmol/L Base Excess -15.1 L (-2.0-3.0) mmol/L ABG pH 7.22 L (7.35-7.45) Sodium 131 L (132-142) mmol/L Potassium 5.0 H (3.4-4.6) mmol/L Chloride 96 L (97-106) mmol/L Carbon Dioxide 20.3 L 21.7 L (24-32.6) mmol/L Anion Gap 19.7 H 16.4 H (6.8-13.8) mmol/L Random Glucose 188 H D (70-110) mg/dL Calcium 7.6 L (7.9-10.9) mg/dL Calcium Adj for Albumin 8.0 L (8.4-10.2) mg/dL Alkaline Phosphatase (50-170) U/L Total Protein 6.0 L (6.2-8.2) gm/dL Albumin 3.1 L (3.4-5.0) gm/dl Urine Glucose (UA) (NEGATIVE) mg/dL Serum Ketones (NEGATIVE) 08/13/19 08/13/19 08/13/19 Range/Units 18:18 19:05 20:15 RDW (11.5-14.0) % Immature Gran % (Auto) (0.001-0.429) % Immature Gran # (Auto) (0.000-0.0310) K/mm3 Neutrophils % (42-75.0) % Lymphocytes % (20-51) % Neutrophils # (1.3-6.0) K/mm3 pCO2 28.2 L 28.5 L (35.0-48.0) mmHg pO2 110.9 H (83.0-108.0) mmHg HCO3 15.1 L 15.5 L (21.0-28.0) mmol/L Total CO2 16.0 L 16.4 L (19.0-24.0) mmol/L Base Excess -9.0 L -8.7 L (-2.0-3.0) mmol/L ABG pH (7.35-7.45) Sodium (132-142) mmol/L Potassium (3.4-4.6) mmol/L Chloride (97-106) mmol/L Carbon Dioxide (24-32.6) mmol/L Anion Gap (6.8-13.8) mmol/L Random Glucose (70-110) mg/dL Calcium (7.9-10.9) mg/dL Calcium Adj for Albumin (8.4-10.2) mg/dL Alkaline Phosphatase (50-170) U/L Total Protein (6.2-8.2) gm/dL Albumin (3.4-5.0) gm/dl Urine Glucose (UA) (NEGATIVE) mg/dL Serum Ketones Positive - 20mg/dl H (NEGATIVE) Laboratory Results WBC 8.5 K/mm3 (4.0-10.5) 08/13/19 12:12 RBC 5.09 M/mm3 (4.7-6.0) 08/13/19 12:12 Hgb 15.8 gm/dL (13.5-18.0) 08/13/19 12:12 Hct 45.4 % (42.0-52.0) 08/13/19 12:12 MCV 89.2 fl (78-100) 08/13/19 12:12 MCH 31.0 pg (27-31) 08/13/19 12:12 MCHC 34.8 g/dl (32-36) 08/13/19 12:12 RDW 11.2 % (11.5-14.0) L 08/13/19 12:12 Plt Count 301 K/mm3 (150-450) 08/13/19 12:12 MPV 9.5 fl (8-11.3) 08/13/19 12:12 Immature Gran % (Auto) 0.50 % (0.001-0.429) H 08/13/19 12:12 Immature Gran # (Auto) 0.04 K/mm3 (0.000-0.0310) H 08/13/19 12:12 Neutrophils % 76.4 % (42-75.0) H 08/13/19 12:12 Lymphocytes % 17.9 % (20-51) L 08/13/19 12:12 Monocytes % 4.3 % (0.0-9) 08/13/19 12:12 Eosinophils % 0.5 % (0.0-3.0) 08/13/19 12:12 Basophils % 0.4 % (0.0-1.0) 08/13/19 12:12 Nucleated RBC % 0.0 k/mm3 (0-1) 08/13/19 12:12 Neutrophils # 6.5 K/mm3 (1.3-6.0) H 08/13/19 12:12 Lymphocytes # 1.52 k/mm3 (1.5-3.5) 08/13/19 12:12 Monocytes # 0.4 k/mm3 (0.0-1.0) 08/13/19 12:12 Eosinophils # 0.0 k/mm3 (0.0-0.7) 08/13/19 12:12 Absolute Basophils 0.0 k/mm3 (0.0-0.1) 08/13/19 12:12 pCO2 28.5 mmHg (35.0-48.0) L 08/13/19 20:15 pO2 110.9 mmHg (83.0-108.0) H 08/13/19 20:15 HCO3 15.5 mmol/L (21.0-28.0) L 08/13/19 20:15 Total CO2 16.4 mmol/L (19.0-24.0) L 08/13/19 20:15 Base Excess -8.7 mmol/L (-2.0-3.0) L 08/13/19 20:15 ABG pH 7.35 (7.35-7.45) 08/13/19 20:15 ABG O2 Sat (Measured) 97.9 % (94.0-98.0) 08/13/19 20:15 Sodium 136 mmol/L (132-142) 08/13/19 19:05 Plasma Sodium 135 mmol/L (130-142) 08/13/19 17:20 Potassium 4.1 mmol/L (3.4-4.6) 08/13/19 19:05 Chloride 103 mmol/L (97-106) 08/13/19 19:05 Carbon Dioxide 25.2 mmol/L (24-32.6) 08/13/19 19:05 Anion Gap 11.9 mmol/L (6.8-13.8) 08/13/19 19:05 BUN 21 mg/dL (6-23) 08/13/19 17:20 Creatinine 1.16 mg/dL (0.4-1.4) 08/13/19 17:20 Est GFR (Non-Af Amer) 71 mL/min (60-130) 08/13/19 17:20 BUN/Creatinine Ratio 18.1 (9.0-21.6) 08/13/19 17:20 Random Glucose 109 mg/dL (70-110) D 08/13/19 19:00 Calcium 7.6 mg/dL (7.9-10.9) L 08/13/19 17:20 Calcium Adj for Albumin 8.0 mg/dL (8.4-10.2) L 08/13/19 17:20 Total Bilirubin 0.6 mg/dL (0.0-1.1) 08/13/19 17:20 AST 15 U/L (0-48) 08/13/19 17:20 ALT 23 U/L (19-67) 08/13/19 17:20 Alkaline Phosphatase 152 U/L (50-170) 08/13/19 17:20 Total Protein 6.0 gm/dL (6.2-8.2) L 08/13/19 17:20 Albumin 3.1 gm/dl (3.4-5.0) L 08/13/19 17:20 Urine Color Yellow 08/13/19 12:37 Urine Appearance Clear (CLEAR) 08/13/19 12:37 Urine pH 5.5 pH (5.0-7.0) 08/13/19 12:37 Ur Specific [place] 1.025 SP.GR. (1.005-1.030) 08/13/19 12:37 Urine Protein Negative mg/dL (NEGATIVE) 08/13/19 12:37 Urine Glucose (UA) >=1000 mg/dL (NEGATIVE) H 08/13/19 12:37 Urine Ketones Large mg/dL (NEGATIVE) 08/13/19 12:37 Urine Blood Negative /ul (NEGATIVE) 08/13/19 12:37 Urine Nitrate Negative (NEGATIVE) 08/13/19 12:37 Urine Bilirubin Negative mg/dl (NEGATIVE) 08/13/19 12:37 Urine Urobilinogen Normal EU/dl (NORMAL) 08/13/19 12:37 Ur Leukocyte Esterase Negative /ul (NEGATIVE) 08/13/19 12:37 Urine RBC None seen /hpf (0-5) 08/13/19 12:37 Urine WBC 0-5 /hpf (0-5) 08/13/19 12:37 Ur Epithelial Cells 0-5 /hpf (0-5) 08/13/19 12:37 Urine Bacteria Trace (NONE) 08/13/19 12:37 Urine Culture Comments No culture indicated 08/13/19 12:37 Serum Ketones Positive - 20mg/dl (NEGATIVE) H 08/13/19 19:05 Assessment/Plan - Narrative Narrative: Assessment/Plan 49-year-old male admitted for diabetic ketoacidosis. (1) DKA (diabetic ketoacidosis) with Increased anion gap metabolic acidosis - Last A1C 05/2018: 10.3 -Manage IV fluids according to DKA protocol as follows; * High serum sodium or normal, 0.45 NaCl @ 250 - 500 ml/hr * Low serum sodium, 0.9% NaCl @ 250 - 500 ml/hr * Serum glucose reaches 200 mg/dL, switch to 5% dextrose with 0.45% NaCl @ 150- 250 mL/hr * Check electrolytes BUN ABG and glucose every 2 hours until serum ketones resolve -We will wean off drip once serum ketones are resolved -Bridged with subcutaneous insulin, subcutaneous insulin to be administered 1-2 hours before discontinuing drip, continue glucose checks to ensure blood sugars well controlled -Resume diabetic diet when ready to bridge to subcutaneous insulin -A1C pending in AM (2) Hyponatremia with increased serum osmolality -Most likely pseudohyponatremia -Sodium correction for hyperglycemia: 133 mEq/L -Continue to monitor (3) Acute hyperkalemia -Received subcutaneous insulin in the ER and potassium trended down -Continue to monitor on insulin drip -As per DKA protocol, * serum potassium is less than 3.3, hold insulin * serum potassium is between 3.3-5.3, give 20 mEq of potassium in each liter of fluid and maintain serum potassium between 4 and 5 mEq/L * Serum potassium greater than 5.3, not administer potassium, check serum potassium every 2 hours. (4) Acute neutrophilia in absence of leukocytosis -Most likely reactive less likely infectious -Will rule out all source of infection with UA and CXR. (5) CKD (chronic kidney disease) stage 2, GFR 60-89 ml/min - Stable - Resume Lisinopril in AM (6) Essential (primary) hypertension - Stable (7) HLD (hyperlipidemia) - Lipid profile pending in AM FEN: N.P.O. D5 1/2 NS with 20 KCl @ 150 ml/hr - Follow DKA Protocol. DVT PPX: Enoxaparin SC Q24H CODE STATUS: FULL CODE Disposition: -Continue management as per DKA protocol -DC 2 hours labs once serum ketones have resolved -We will resume diet administer first dose of subcutaneous insulin and wean off drip over 1 to 2 hours. - Assessment/Plan (1) Increased anion gap metabolic acidosis Problem: Acute (2) Hyponatremia with increased serum osmolality Problem: Acute (3) Acute hyperkalemia Problem: Acute (4) Acute neutrophilia Problem: Acute (5) CKD (chronic kidney disease) stage 2, GFR 60-89 ml/min Problem: Acute (6) Essential (primary) hypertension Problem: Acute (7) HLD (hyperlipidemia) Problem: Acute (8) DKA (diabetic ketoacidosis) Problem: Acute Qualifiers: Diabetes mellitus type: type 1 Diabetes mellitus complication detail: without coma Qualified Code(s): E10.10 - Type 1 diabetes mellitus with ketoacidosis without coma
[2019-08-13 21:04] LABS: Anion Gap 12.7 mmol/L (6.8-13.8); Carbon Dioxide 25.4 mmol/L (24-32.6); Chloride 102 mmol/L (97-106); Glucose * 193 mg/dL (70-110); Potassium 4.1 mmol/L (3.4-4.6); Sodium 136 mmol/L (132-142)
[2019-08-13 21:33] LABS: CK Total * 29 U/L (0-259); CKMB 1.6 ng/mL (0.0-9.0); Troponin I Less than 0.017 ng/mL (0.00-0.10)
[2019-08-13 23:15] LABS: Anion Gap 10.4 mmol/L (6.8-13.8); Carbon Dioxide 27.6 mmol/L (24-32.6); Chloride 104 mmol/L (97-106); Glucose * 153 mg/dL (70-110); Sodium 138 mmol/L (132-142)
[2019-08-14 01:46] LABS: Anion Gap 9.5 mmol/L (6.8-13.8); Carbon Dioxide 26.4 mmol/L (24-32.6); Chloride 106 mmol/L (97-106); Glucose * 123 mg/dL (70-110); Potassium 3.9 mmol/L (3.4-4.6); Sodium 138 mmol/L (132-142)
[2019-08-14] MEDS: POTASSIUM CHLORIDE 20 MEQ in DEXTROSE 5%-0.5 NORMAL SALINE 990 ML IV SCH ×2 (03:11→09:48)
[2019-08-14 03:30] LABS: Anion Gap 8.3 mmol/L (6.8-13.8); Carbon Dioxide 28.6 mmol/L (24-32.6); Potassium 3.9 mmol/L (3.4-4.6)
[2019-08-14 05:24] LABS: Hematocrit 36.3 % (42.0-52.0); Mean Cell Volume 87.5 fl (78-100); Mean Corpuscular Hemoglobin 31.3 pg (27-31); Mean Corpuscular Hgb Conc 35.8 g/dl (32-36); Mean Platelet Volume 9.3 fl (8-11.3); Neutrophil # 4.3 K/mm3 (1.3-6.0); Platelet Count 220 K/mm3 (150-450); Red Blood Count 4.15 M/mm3 (4.7-6.0); Red Cell Distribution Width 11.1 % (11.5-14.0); White Blood Count 6.9 K/mm3 (4.0-10.5)
[2019-08-14 05:40] LABS: ALT 19 U/L (19-67); AST 16 U/L (0-48); Albumin * 2.8 gm/dl (3.4-5.0); Alkaline Phosphatase * 132 U/L (50-170); Anion Gap 11.1 mmol/L (6.8-13.8); Bilirubin, Total 0.5 mg/dL (0.0-1.1); Blood Urea Nitrogen 11 mg/dL (6-23); Ca. Corrected For Albumin 8.3 mg/dL (8.4-10.2); Calcium * 7.7 mg/dL (7.9-10.9); Carbon Dioxide 25.7 mmol/L (24-32.6); Chloride 106 mmol/L (97-106); Chol/HDL Risk Ratio 4.8 mg/dL (3.3-5.0); Cholesterol 165 mg/dL (0-200); Glucose * 166 mg/dL (70-110); HDL Cholesterol 34 mg/dL (40-60); LDL Cholesterol 103 mg/dL (70-130); Potassium 3.8 mmol/L (3.4-4.6); Sodium 139 mmol/L (132-142); Total Protein 5.5 gm/dL (6.2-8.2); Triglycerides 140 mg/dL (30-200); VLDL Cholesterol 28 mg/dL (5-40)
[2019-08-14 05:47] LABS: Hemoglobin A1C 10.5 % (4.00-6.0)
[2019-08-14 07:21] LABS: Anion Gap 11.3 mmol/L (6.8-13.8); Carbon Dioxide 27.5 mmol/L (24-32.6); Potassium 3.8 mmol/L (3.4-4.6)
[2019-08-14 07:29] LABS: Urine Bilirubin Negative (NEGATIVE); Urine Blood Negative /ul (NEGATIVE); Urine Ketone 15 mg/dL (NEGATIVE); Urine Nitrite Negative (NEGATIVE); Urine Protein Negative (NEGATIVE); Urine Urobilinogen Normal (NORMAL)
[2019-08-14 07:42] LABS: Urine Appearance Clear (CLEAR); Urine Color Yellow
[2019-08-14 07:43] LABS: Urine Bacteria None Seen; Urine RBC None Seen /hpf (0-5); Urine WBC 0-5 /hpf (0-5)
[2019-08-14] MEDS ORDERED: INSULIN GLARGINE,HUM.REC.ANLOG 100 UNITS/ML VIAL SC SCH ×2 (08:15→21:00)
[2019-08-14] MEDS: INSULIN LISPRO 100 UNITS/ML VIAL SC SCH ×2 (08:38→11:54)
[2019-08-14 09:13] LABS: Anion Gap 10.9 mmol/L (6.8-13.8); Carbon Dioxide 25.1 mmol/L (24-32.6)
[2019-08-14] MEDS: POTASSIUM CHLORIDE 20 MEQ in NORMAL SALINE 1,000 ML IV SCH (09:49)
--- NOTE | 2019-08-14 15:48 | DS ---
(1) DKA (diabetic ketoacidosis) Problem: Acute Qualifiers: Diabetes mellitus type: type 1 Diabetes mellitus complication detail: without coma Qualified Code(s): E10.10 - Type 1 diabetes mellitus with ketoacidosis without coma Date of Discharge:: 08/14/19 Hospital Course: Eduardo is a Type I Diabetic admitted for Diabeticketoacidosis. He was evaluated for a precipitating cause, but there was no evidence of infection or acute stressor. He was started on IV fluids and IV insulin. Electrolytes and glucose were monitored. His high anion gap metabolic acidosis resolved with this treatment and he was switched to SC insulin, change to consisten carb diet, and IV insulin drip was discontinued an hour later. He is feeling great and ready for discharge. He does admit that he had not been taking his Lantus and needs a refill. This is the likely cause to his DKA. He will follow up in clinic in 1 week. Procedures Performed: none Results and Findings: Lab Pending Results 08/13/19 12:12: WBC 8.5, RBC 5.09, Hgb 15.8, Hct 45.4, MCV 89.2, MCH 31.0, MCHC 34.8, RDW 11.2 L, Plt Count 301, MPV 9.5, Immature Gran % (Auto) 0.50 H, Immature Gran # (Auto) 0.04 H, Neutrophils % 76.4 H, Lymphocytes % 17.9 L, Monocytes % 4.3, Eosinophils % 0.5, Basophils % 0.4, Nucleated RBC % 0.0, Neutrophils # 6.5 H, Lymphocytes # 1.52, Monocytes # 0.4, Eosinophils # 0.0, Absolute Basophils 0.0 08/13/19 12:12: Sodium 128 L, Plasma Sodium 133, Potassium 5.2 H, Chloride 89 L, Carbon Dioxide 17.5 L, Anion Gap 26.7 H, BUN 22, Creatinine 1.29, Est GFR (Non- Af Amer) 63 D, BUN/Creatinine Ratio 17.1, Random Glucose 413 H, Calcium 8.6, Calcium Adj for Albumin 8.4, Total Bilirubin 1.0, AST 19, ALT 27, Alkaline Phosphatase 190 H, Total Protein 7.3, Albumin 3.8, Serum Ketones Positive - 20mg/dl H 08/13/19 12:37: Urine Color Yellow, Urine Appearance Clear, Urine pH 5.5, Ur Specific [place] 1.025, Urine Protein Negative, Urine Glucose (UA) >=1000 H, Urine Ketones Large, Urine Blood Negative, Urine Nitrate Negative, Urine Bilirubin Negative, Urine Urobilinogen Normal, Ur Leukocyte Esterase Negative, Urine RBC None seen, Urine WBC 0-5, Ur Epithelial Cells 0-5, Urine Bacteria Trace, Urine Culture Comments No culture indicated 08/13/19 12:50: pCO2 27.4 L, pO2 104.3, HCO3 10.9 L, Total CO2 11.8 L, Base Excess -15.1 L, ABG pH 7.22 L, ABG O2 Sat (Measured) 96.8 08/13/19 15:04: Sodium 131 L, Potassium 5.0 H, Chloride 96 L, Carbon Dioxide 20.3 L, Anion Gap 19.7 H 08/13/19 17:20: Sodium 134, Plasma Sodium 135, Potassium 4.1, Chloride 100, Carbon Dioxide 21.7 L, Anion Gap 16.4 H, BUN 21, Creatinine 1.16, Est GFR (Non- Af Amer) 71, BUN/Creatinine Ratio 18.1, Random Glucose 188 H D, Calcium 7.6 L, Calcium Adj for Albumin 8.0 L, Total Bilirubin 0.6, AST 15, ALT 23, Alkaline Phosphatase 152, Total Protein 6.0 L, Albumin 3.1 L 08/13/19 18:18: pCO2 28.2 L, pO2 103.8, HCO3 15.1 L, Total CO2 16.0 L, Base Excess -9.0 L, ABG pH 7.35, ABG O2 Sat (Measured) 97.6 08/13/19 19:00: Random Glucose 109 D 08/13/19 19:05: Sodium 136, Potassium 4.1, Chloride 103, Carbon Dioxide 25.2, Anion Gap 11.9, Serum Ketones Positive - 20mg/dl H 08/13/19 20:15: pCO2 28.5 L, pO2 110.9 H, HCO3 15.5 L, Total CO2 16.4 L, Base Excess -8.7 L, ABG pH 7.35, ABG O2 Sat (Measured) 97.9 08/13/19 20:30: Creatine Kinase 29, CK-MB (CK-2) 1.6, CK-MB (CK-2) Rel Index 5.5 H, Troponin I Less than 0.017 08/13/19 20:55: Sodium 136, Potassium 4.1, Chloride 102, Carbon Dioxide 25.4, Anion Gap 12.7, Random Glucose 193 H D, Serum Ketones Positive - 20mg/dl H 08/13/19 23:00: Sodium 138, Potassium 4.0, Chloride 104, Carbon Dioxide 27.6, Anion Gap 10.4, Random Glucose 153 H, Serum Ketones Positive - 20mg/dl H 08/14/19 01:28: Sodium 138, Potassium 3.9, Chloride 106, Carbon Dioxide 26.4, Anion Gap 9.5, Random Glucose 123 H, Serum Ketones Positive - 20mg/dl H 08/14/19 03:10: Sodium 138, Potassium 3.9, Chloride 105, Carbon Dioxide 28.6, Anion Gap 8.3, Random Glucose 172 H D 08/14/19 05:10: Sodium 139, Plasma Sodium 140, Potassium 3.8, Chloride 106, Carbon Dioxide 25.7, Anion Gap 11.1, BUN 11, Creatinine 0.92, Est GFR (Non-Af Amer) 93 D, BUN/Creatinine Ratio 12.0, Random Glucose 166 H, Calcium 7.7 L, Calcium Adj for Albumin 8.3 L, Total Bilirubin 0.5, AST 16, ALT 19, Alkaline Phosphatase 132, Total Protein 5.5 L, Albumin 2.8 L, Triglycerides 140, Cholesterol 165, LDL Cholesterol 103, VLDL Cholesterol 28, HDL Cholesterol 34 L, Cholesterol/HDL Ratio 4.8, Serum Ketones Positive - 20mg/dl H 08/14/19 05:10: WBC 6.9, RBC 4.15 L, Hgb 13.0 L, Hct 36.3 L, MCV 87.5, MCH 31.3 H, MCHC 35.8, RDW 11.1 L, Plt Count 220, MPV 9.3, Immature Gran % (Auto) 0.30, Immature Gran # (Auto) 0.02, Neutrophils % 63.0, Lymphocytes % 28.8, Monocytes % 6.3, Eosinophils % 1.3, Basophils % 0.3, Nucleated RBC % 0.0, Neutrophils # 4.3, Lymphocytes # 1.98, Monocytes # 0.4, Eosinophils # 0.1, Absolute Basophils 0.0 08/14/19 05:10: Mean Blood Glucose 264, Hemoglobin A1c 10.5 H 08/14/19 07:05: Sodium 141, Potassium 3.8, Chloride 106, Carbon Dioxide 27.5, Anion Gap 11.3, Random Glucose 131 H 08/14/19 07:19: Urine Color Yellow, Urine Appearance Clear, Urine pH 6.0, Ur Specific [place] 1.010, Urine Protein Negative, Urine Glucose (UA) 100 H, Urine Ketones 15, Urine Blood Negative, Urine Nitrate Negative, Urine Bilirubin Negative, Urine Urobilinogen Normal, Ur Leukocyte Esterase Negative, Urine RBC None seen, Urine WBC 0-5, Ur Epithelial Cells None seen, Urine Bacteria None seen 08/14/19 08:58: Sodium 139, Potassium 4.0, Chloride 107 H, Carbon Dioxide 25.1, Anion Gap 10.9, Random Glucose 170 H Discharge Location: Home Disposition: Home self-care Condition: Good Discharge Activity: Activity as tolerated Discharge Diet: Consistent carbs Referrals: Elton Martínez DO [Primary Care Provider] - One Week Problem Oriented Discharge Instructions to Patient/Family: Diabetic Ketoacidosis Complete Home Medications List: Complete Home Medication List: Insulin Glargine,Hum.rec.anlog [Lantus] 20 units SC DAILY@1230 12/19/16 Insulin Lispro [Humalog] See Protocol SQ ACHS 03/30/18 acetaminophen 325 mg tablet 650 mg PO Q6H PRN tab 07/21/18 blood sugar diagnostic See Dose Instructions .ROUTE .MEDSUPPLY #100 ea 02/08/19 blood sugar diagnostic See Rx Instructions .ROUTE .MEDSUPPLY #50 ea 05/23/19 Humalog KwikPen Insulin 100 unit/mL subcutaneous See Rx Instructions SUBCUT QID #36 ml NS 07/12/19
[2019-08-14 16:25] VITALS: BP 129/83
== END 2019-08-14 16:15 | disposition home or self-care (01) | DRG 638 ==
LOC: ER 11:36 → MS 14:40
PROVIDERS: ADMIT Family Medicine; ATTEND Family Medicine
CPT/HCPCS: 36415; 36600; 71020; 71046; 80051; 80053; 80061; 81001; 82009; 82550; 82553; 82803; 82947; 83036; 84484; 85025; 93005; 96361; 96374; 96375; 99285; J2405

== ENCOUNTER 2020-08-11 10:30 | Inpatient (IN) ==
[2020-08-11] MEDS ORDERED: NORMAL SALINE 1,000 ML IV PRN (10:35)
--- NOTE | 2020-08-11 10:37 | ERNOTE ---
Medical Problem HPI - Narrative Date of Service: 08/11/20 - General Chief Complaint: Nausea/Vomiting Time Seen by Provider: 08/11/20 10:31 Source: patient Exam Limitations: clinical condition - Immun/Allergies/Home Medications Immunizations: IMMUNIZATION HX Immunizations Up to Date Yes History of Influenza Vaccine Yes Hx Pneumococcal Vaccination No Allergies/Adverse Reactions: Allergies No Known Allergies Allergy (Verified 01/09/20 15:18) Home Medications: HOME MEDICATIONS Insulin Lispro [Humalog] See Protocol SQ ACHS 03/30/18 [Last Taken 01/12/19] acetaminophen 325 mg tablet 650 mg PO Q6H PRN tab 07/21/18 [Last Taken 07/24/18] blood sugar diagnostic See Dose Instructions .ROUTE .MEDSUPPLY #100 ea 02/08/19 [Last Taken Unknown] blood sugar diagnostic See Rx Instructions .ROUTE .MEDSUPPLY #50 ea 05/23/19 [Last Taken Unknown] Humalog KwikPen Insulin 100 unit/mL subcutaneous See Rx Instructions SUBCUT QID #36 ml NS 01/22/20 [Last Taken Unknown] insulin glargine 100 unit/mL (3 mL) subcutaneous pen 20 unit SUBCUT DAILY #18 ml 06/18/20 [Last Taken Unknown] Clopidogrel Bisulfate [Plavix] 75 mg PO DAILY #90 tab 08/11/20 [Last Taken Unknown] - History of Present History Narrative: The patient is a 50 year old male who presents via [facility] for vomiting and diarrhea which has been present since Tuesday. There are associated symptoms of abdominal pain, fatigue and elevated blood sugar. The patient reports generalized abdominal pain. There are no alleviating factors. There are aggravating factors or oral intake. Previous treatments have included: none. The past medical history includes: DM, HTN, HLD, depression and neuropathy. The social history is positive for chew tobacco and occasional alcohol use. The patient has had no known ill contacts. Patient states he developed vomiting and diarrhea on Tuesday containing intermittent blood in emesis. Patient also reports pain to low back which he states is chronic without reinjury. Patient states that blood sugars became elevated on Tuesday. Review of Systems - Review of Systems Constitutional: Present: chills, fatigue. Absent: fever EYE: Present: no symptoms reported ENT: Present: no symptoms reported. Absent: ear pain, nasal drainage, sore throat Respiratory: Present: no symptoms reported. Absent: shortness of breath, cough Cardiology: Present: no symptoms reported. Absent: chest pain Gastrointestinal/Abdominal: Present: nausea, vomiting, diarrhea, abdominal pain Genitourinary: Present: no symptoms reported. Absent: dysuria, decreased urinary output Musculoskeletal: Present: back pain Skin: Present: no symptoms reported. Absent: rash Neurological: Present: no symptoms reported Endocrine: Present: increased thirst All Other Systems: All systems neg except as marked Medical History (Last Reviewed 08/11/20 @ 10:42 by BRISA Arnett) Depression Onset Date: Unknown Diabetes mellitus Onset Date: Unknown Erectile dysfunction Onset Date: Unknown Essential hypertension Onset Date: ~06/10/11 Hyperlipidemia Onset Date: Unknown Metacarpal bone fracture Onset Date: 07/08/18 right 4th Neuropathy Onset Date: Unknown bilateral feet Diabetic eye exam Onset Date: Unknown IEC - no evidence of diabetic retinopathy found in either eye. Surgical History: Surgical History (Last Reviewed 08/11/20 @ 10:42 by BRISA Arnett) History of cystoscopy Onset Date: 03/19/19 Dr. Hoang Cordero, [facility]. History of hand surgery Onset Date: 08/31/18 Dr. Tyler Busby [facility]. Right. Rafael wire removal right fourth metacarpal. History of open reduction and internal fixation (ORIF) procedure Onset Date: 07/25/18 Dr. Tyler Busby [facility]. Closed reduction and percutaneous pinning of right fourth metacarpal neck fracture. S/P epidural steroid injection Onset Date: 11/13/13 L4-L5. 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 Highest level of school completed/degree received: some college, no degree Service: No Tobacco: Smoking Status: Never smoker Smokeless tobacco user: chewing tobacco Alcohol: alcohol intake: current Alcohol type: beer alcohol intake frequency: a few times a week Dietary Habits: caffeine: Yes caffeine comment: 1 Type: coffee Physical Exam - Physical Exam General Appearance: Present: wd/wn, alert, mild distress Head Exam: Present: normal inspection, no evidence of injury Eye Exam: Normal inspection: bilateral Ears, Nose, Throat: Present: dry mucous membranes Neck: Present: normal inspection Respiratory: Present: no respiratory distress, normal breath sounds, no accessory muscle use, lungs clear Cardiovascular/Chest: Present: no murmur, tachycardia Gastrointestinal/Abdominal: Present: normal bowel sounds, nondistended, soft, no organomegaly, tenderness - diffuse Extremity Exam: Present: no edema Neurological Exam: Present: alert, oriented, normal mood/affect, no motor/sensory deficits Skin Exam: Present: normal color, warm/dry Progress - Date and Time Seen: Date and Time: 08/11/20 13:00 Patient given IV hydration due to DKA and dehydration, gap 31 and Crea 1.68. Patient unsure of what caused onset of symptoms but developed nausea, vomiting and diarrhea on Tuesday which persisted through the weekend. Results of testing reviewed with and will admit for DKA, COVID test remains pending. 08/11/20 15:01 was notified of positive COVID testing prior to admission. Patient remains without distress noted, nausea improved. Patient awake and visiting wi th mother at bedside upon admission. Patient verbalized understanding of admission and agrees. Delay of insulin gtt initiation. - Results and Orders Patient's Lab Results:: I have reviewed the patient's lab results. - Vital Signs Patient's Vital Signs:: I have reviewed the patient's vital signs. Vital Signs: Vital Signs 08/11/20 10:31 Temperature 37 C Pulse Rate 112 H Respiratory Rate 21 H Blood Pressure 135/84 O2 Sat by Pulse Oximetry 100 - EKG EKG #1 EKG: NSR - tachycardia - X-Ray X-Ray #1 X-Ray: chest Interpretation: Reviewed by me X-ray Comments: IMPRESSION: NO ACUTE CHEST DISEASE RADIOGRAPHICALLY. Electronically signed by Josiah Bravo MD. X-Ray #2 X-Ray: abdomen Interpretation: Reviewed by me X-ray Comments: IMPRESSION: RELATIVELY UNREMARKABLE ABDOMINAL PLAIN FILM EXAM. NO FINDINGS OF FREE INTRAPERITONEAL AIR OR RADIOGRAPHIC FINDINGS SUGGESTIVE OF MECHANICAL BOWEL OBSTRUCTION. Electronically signed by Josiah Bravo MD. - Progress/Reassessment Chief Complaint: Nausea/Vomiting Progress:: Improved Departure Clinical Impression: COVID-19 DKA (diabetic ketoacidosis) Qualifiers: Diabetes mellitus type: type 1 Diabetes mellitus complication detail: without coma Qualified Code(s): E10.10 - Type 1 diabetes mellitus with ketoacidosis without coma - Departure Disposition: Still a patient Condition: Fair
[2020-08-11 10:54] LABS: Hematocrit 47.6 % (42.0-52.0); Hemoglobin 15.8 gm/dL (13.5-18.0); Mean Cell Volume 89.8 fl (78-100); Mean Corpuscular Hemoglobin 29.8 pg (27-31); Mean Corpuscular Hgb Conc 33.2 g/dl (32-36); Mean Platelet Volume 9.6 fl (8-11.3); Neutrophil # 11.1 K/mm3 (1.3-6.0); Neutrophil % 86.3 % (42-75.0); Platelet Count 274 K/mm3 (150-450); Red Cell Distribution Width 11.6 % (11.5-14.0); White Blood Count 12.9 K/mm3 (4.0-10.5)
[2020-08-11 11:09] LABS: ALT 30 U/L (19-67); AST 30 U/L (0-48); Albumin * 3.5 gm/dl (3.4-5.0); Alkaline Phosphatase * 232 U/L (50-170); Amylase * 12 U/L (25-115); BUN/Creatinine Ratio 12.5 (9.0-21.6); Bilirubin, Total 0.6 mg/dL (0.0-1.1); Blood Urea Nitrogen 21 mg/dL (6-23); Ca. Corrected For Albumin 8.8 mg/dL (8.4-10.2); Calcium * 8.7 mg/dL (7.9-10.9); Carbon Dioxide 10.4 mmol/L (24-32.6); Chloride 89 mmol/L (97-106); Lipase 21 U/L (73-393); Potassium 5.4 mmol/L (3.4-4.6); Sodium 125 mmol/L (132-142); Total Protein 7.8 gm/dL (6.2-8.2)
[2020-08-11 11:11] LABS: Glucose * 517 mg/dL (70-110); Troponin I Less than 0.017 ng/mL (0.00-0.10)
[2020-08-11] MEDS ORDERED: ONDANSETRON HCL/PF 2 MG/ML VIAL IV ONE (11:18)
[2020-08-11] MEDS ORDERED: INSULIN REGULAR, HUMAN 100 UNITS/ML VIAL IV ONE (11:34)
[2020-08-11 11:52] LABS: Urine Bilirubin 1 mg/dl (NEGATIVE); Urine Ketone Large mg/dL (NEGATIVE); Urine Nitrite Negative (NEGATIVE); Urine Protein 15 mg/dL (NEGATIVE); Urine Specific Gravity >=1.030 SP.GR. (1.005-1.030); Urine Urobilinogen Normal (NORMAL)
[2020-08-11] MEDS ORDERED: INSULIN REGULAR, HUMAN 100 UNITS in NORMAL SALINE 100 ML IV PRN ×2 (11:52)
[2020-08-11 11:53] LABS: Urine Appearance Clear (CLEAR); Urine Bacteria None Seen; Urine Blood 5 /ul (NEGATIVE); Urine Color Pale Yellow; Urine RBC None Seen /hpf (0-5); Urine WBC 0-5 /hpf (0-5)
[2020-08-11] MEDS ORDERED: NORMAL SALINE 1,000 ML IV ONE (12:10)
[2020-08-11] MEDS: NORMAL SALINE 1,000 ML IV PRN ×2 (14:08→18:45)
[2020-08-11 14:12] LABS: Albumin * 3.1 gm/dl (3.4-5.0); Anion Gap 30.1 mmol/L (6.8-13.8); BUN/Creatinine Ratio 15.1 (9.0-21.6); Bilirubin, Total 0.5 mg/dL (0.0-1.1); Ca. Corrected For Albumin 7.8 mg/dL (8.4-10.2); Calcium * 7.4 mg/dL (7.9-10.9); Carbon Dioxide 9.2 mmol/L (24-32.6); Potassium 5.3 mmol/L (3.4-4.6); Total Protein 6.7 gm/dL (6.2-8.2)
[2020-08-11] MEDS ORDERED: DEXAMETHASONE SODIUM PHOSP/PF 10 MG/ML VIAL IV SCH (15:30)
[2020-08-11 16:15] LABS: Anion Gap 26.5 mmol/L (6.8-13.8); Bilirubin, Total 0.4 mg/dL (0.0-1.1); Ca. Corrected For Albumin 8.2 mg/dL (8.4-10.2); Calcium * 7.7 mg/dL (7.9-10.9); Carbon Dioxide 11.2 mmol/L (24-32.6); Potassium 4.7 mmol/L (3.4-4.6); Total Protein 6.7 gm/dL (6.2-8.2)
[2020-08-11] MEDS: POTASSIUM CHLORIDE IN WATER 100 ML IV SCH ×4 (16:53→19:49)
--- NOTE | 2020-08-11 16:58 | HP ---
Chief Complaint - Chief Complaint Date of Service: 08/11/20 Time of Service: 16:30 Chief Complaint: nausea, vomiting, diarrhea History of Present Illness: History obtained from ERP and chart. Patient with PMHx of DM was brought by EMS for N/V/D 4 days. He was found to be positive for COVID, and had decreased CO2, elevated anion gap, positive urine ketones, and pH was 7.09. He was diagnosed with DKA, given a bolus of 7 U insulin, and started on an insulin drip at 6.6 U/hr. He was given 2 L NS in the ED, via boluses. He is admitted for SCU for DKA treatment and electrolyte correction. He briefly wakens to answer questions, but does not stay awake for entire exam. Medical History (Last Reviewed 08/11/20 @ 10:42 by BRISA Arnett) Depression Onset Date: Unknown Diabetes mellitus Onset Date: Unknown Erectile dysfunction Onset Date: Unknown Essential hypertension Onset Date: ~06/10/11 Hyperlipidemia Onset Date: Unknown Metacarpal bone fracture Onset Date: 07/08/18 right 4th Neuropathy Onset Date: Unknown bilateral feet Diabetic eye exam Onset Date: Unknown IEC - no evidence of diabetic retinopathy found in either eye. Surgical History: Surgical History (Last Reviewed 08/11/20 @ 10:42 by BRISA Arnett) History of cystoscopy Onset Date: 03/19/19 Dr. Hoang Cordero, [facility]. History of hand surgery Onset Date: 08/31/18 Dr. Tyler Busby, [facility]. Right. Rafael wire removal right fourth metacarpal. History of open reduction and internal fixation (ORIF) procedure Onset Date: 07/25/18 Dr. Tyler Bsuby [facility]. Closed reduction and percutaneous pinning of right fourth metacarpal neck fracture. S/P epidural steroid injection Onset Date: 11/13/13 L4-L5. 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 Absent: Fever Respiratory: Absent: Shortness of Breath Cardiac: Absent: Chest Pain Abdominal: Present: Nausea, Vomiting, Diarrhea Immunizations: IMMUNIZATION HX Immunizations Up to Date Yes History of Influenza Vaccine Yes Hx Pneumococcal Vaccination No Allergies/Adverse Reactions: Allergies Allergy/AdvReac Type Severity Reaction Status Date / Time No Known Allergies Allergy Verified 01/09/20 15:18 Home Medications: HOME MEDICATIONS Insulin Lispro [Humalog] See Protocol SQ ACHS 03/30/18 [Last Taken 01/12/19] acetaminophen 325 mg tablet 650 mg PO Q6H PRN tab 07/21/18 [Last Taken 07/24/18] blood sugar diagnostic See Dose Instructions .ROUTE .MEDSUPPLY #100 ea 02/08/19 [Last Taken Unknown] blood sugar diagnostic See Rx Instructions .ROUTE .MEDSUPPLY #50 ea 05/23/19 [Last Taken Unknown] Humalog KwikPen Insulin 100 unit/mL subcutaneous See Rx Instructions SUBCUT QID #36 ml NS 01/22/20 [Last Taken Unknown] insulin glargine 100 unit/mL (3 mL) subcutaneous pen 20 unit SUBCUT DAILY #18 ml 06/18/20 [Last Taken Unknown] Clopidogrel Bisulfate [Plavix] 75 mg PO DAILY #90 tab 08/11/20 [Last Taken Unknown] Exam - Exam Vital Signs: Vital Signs - Last Taken Temp 36.6 C 08/11/20 15:04 Pulse 101 H 08/11/20 16:00 Resp 19 08/11/20 16:00 BP 114/63 08/11/20 16:00 Pulse Ox 99 08/11/20 15:04 Constitutional: Present: No distress, Somnolent Respiratory: Present: lungs clear, normal breath sounds Cardiovascular/Chest: Present: regular rate, rhythm Abdomen: Present: soft Extremity: Absent: lower extremity edema Diagnostic Studies: Abnormal Lab Results 08/11/20 08/11/20 08/11/20 Range/Units 10:48 10:48 11:20 WBC 12.9 H (4.0-10.5) K/mm3 Immature Gran % (Auto) 0.60 H (0.001-0.429) % Immature Gran # (Auto) 0.08 H (0.000-0.0310) K/mm3 Neutrophils % 86.3 H (42-75.0) % Lymphocytes % 5.8 L (20-51) % Neutrophils # 11.1 H (1.3-6.0) K/mm3 Lymphocytes # 0.75 L (1.5-3.5) k/mm3 pCO2 (35.0-48.0) mmHg pO2 (83.0-108.0) mmHg HCO3 (21.0-28.0) mmol/L Total CO2 (19.0-24.0) mmol/L Base Excess (-2.0-3.0) mmol/L ABG pH (7.35-7.45) Sodium 125 L (132-142) mmol/L Potassium 5.4 H D (3.4-4.6) mmol/L Chloride 89 L (97-106) mmol/L Carbon Dioxide 10.4 L (24-32.6) mmol/L Anion Gap 31.0 H (6.8-13.8) mmol/L Creatinine 1.68 H D (0.4-1.4) mg/dL Est GFR (Non-Af Amer) 46 L D (60-130) mL/min Random Glucose 517 H (70-110) mg/dL Calcium (7.9-10.9) mg/dL Calcium Adj for Albumin (8.4-10.2) mg/dL Alkaline Phosphatase 232 H (50-170) U/L Albumin (3.4-5.0) gm/dl Amylase 12 L (25-115) U/L Lipase 21 L (73-393) U/L Urine Protein 15 H (NEGATIVE) mg/dL Urine Glucose (UA) >=1000 H (NEGATIVE) mg/dL Urine Blood 5 H (NEGATIVE) /ul Urine Bilirubin 1 H (NEGATIVE) mg/dl Serum Ketones Positive - 40mg/dl H (NEGATIVE) SARS-CoV-2 (PCR) (NotDetected) 08/11/20 08/11/20 08/11/20 Range/Units 11:33 12:05 13:56 WBC (4.0-10.5) K/mm3 Immature Gran % (Auto) (0.001-0.429) % Immature Gran # (Auto) (0.000-0.0310) K/mm3 Neutrophils % (42-75.0) % Lymphocytes % (20-51) % Neutrophils # (1.3-6.0) K/mm3 Lymphocytes # (1.5-3.5) k/mm3 pCO2 19.7 L* (35.0-48.0) mmHg pO2 109.5 H (83.0-108.0) mmHg HCO3 5.8 L (21.0-28.0) mmol/L Total CO2 6.4 L (19.0-24.0) mmol/L Base Excess -22.2 L (-2.0-3.0) mmol/L ABG pH 7.09 L* (7.35-7.45) Sodium 130 L (132-142) mmol/L Potassium 5.3 H (3.4-4.6) mmol/L Chloride 96 L (97-106) mmol/L Carbon Dioxide 9.2 L (24-32.6) mmol/L Anion Gap 30.1 H (6.8-13.8) mmol/L Creatinine (0.4-1.4) mg/dL Est GFR (Non-Af Amer) 57 L D (60-130) mL/min Random Glucose 422 H (70-110) mg/dL Calcium 7.4 L (7.9-10.9) mg/dL Calcium Adj for Albumin 7.8 L (8.4-10.2) mg/dL Alkaline Phosphatase 202 H (50-170) U/L Albumin 3.1 L (3.4-5.0) gm/dl Amylase (25-115) U/L Lipase (73-393) U/L Urine Protein (NEGATIVE) mg/dL Urine Glucose (UA) (NEGATIVE) mg/dL Urine Blood (NEGATIVE) /ul Urine Bilirubin (NEGATIVE) mg/dl Serum Ketones (NEGATIVE) SARS-CoV-2 (PCR) Detected H (NotDetected) 08/11/20 Range/Units 15:40 WBC (4.0-10.5) K/mm3 Immature Gran % (Auto) (0.001-0.429) % Immature Gran # (Auto) (0.000-0.0310) K/mm3 Neutrophils % (42-75.0) % Lymphocytes % (20-51) % Neutrophils # (1.3-6.0) K/mm3 Lymphocytes # (1.5-3.5) k/mm3 pCO2 (35.0-48.0) mmHg pO2 (83.0-108.0) mmHg HCO3 (21.0-28.0) mmol/L Total CO2 (19.0-24.0) mmol/L Base Excess (-2.0-3.0) mmol/L ABG pH (7.35-7.45) Sodium 129 L (132-142) mmol/L Potassium 4.7 H (3.4-4.6) mmol/L Chloride 96 L (97-106) mmol/L Carbon Dioxide 11.2 L (24-32.6) mmol/L Anion Gap 26.5 H (6.8-13.8) mmol/L Creatinine 1.43 H (0.4-1.4) mg/dL Est GFR (Non-Af Amer) 55 L (60-130) mL/min Random Glucose 335 H (70-110) mg/dL Calcium 7.7 L (7.9-10.9) mg/dL Calcium Adj for Albumin 8.2 L (8.4-10.2) mg/dL Alkaline Phosphatase 195 H (50-170) U/L Albumin 3.0 L (3.4-5.0) gm/dl Amylase (25-115) U/L Lipase (73-393) U/L Urine Protein (NEGATIVE) mg/dL Urine Glucose (UA) (NEGATIVE) mg/dL Urine Blood (NEGATIVE) /ul Urine Bilirubin (NEGATIVE) mg/dl Serum Ketones (NEGATIVE) SARS-CoV-2 (PCR) (NotDetected) Laboratory Results WBC 12.9 K/mm3 (4.0-10.5) H 08/11/20 10:48 RBC 5.30 M/mm3 (4.7-6.0) 08/11/20 10:48 Hgb 15.8 gm/dL (13.5-18.0) 08/11/20 10:48 Hct 47.6 % (42.0-52.0) 08/11/20 10:48 MCV 89.8 fl (78-100) 08/11/20 10:48 MCH 29.8 pg (27-31) 08/11/20 10:48 MCHC 33.2 g/dl (32-36) 08/11/20 10:48 RDW 11.6 % (11.5-14.0) 08/11/20 10:48 Plt Count 274 K/mm3 (150-450) 08/11/20 10:48 MPV 9.6 fl (8-11.3) 08/11/20 10:48 Immature Gran % (Auto) 0.60 % (0.001-0.429) H 08/11/20 10:48 Immature Gran # (Auto) 0.08 K/mm3 (0.000-0.0310) H 08/11/20 10:48 Neutrophils % 86.3 % (42-75.0) H 08/11/20 10:48 Lymphocytes % 5.8 % (20-51) L 08/11/20 10:48 Monocytes % 7.1 % (0.0-9) 08/11/20 10:48 Eosinophils % 0.0 % (0.0-3.0) 08/11/20 10:48 Basophils % 0.2 % (0.0-1.0) 08/11/20 10:48 Nucleated RBC % 0.0 k/mm3 (0-1) 08/11/20 10:48 Neutrophils # 11.1 K/mm3 (1.3-6.0) H 08/11/20 10:48 Lymphocytes # 0.75 k/mm3 (1.5-3.5) L 08/11/20 10:48 Monocytes # 0.9 k/mm3 (0.0-1.0) 08/11/20 10:48 Eosinophils # 0.0 k/mm3 (0.0-0.7) 08/11/20 10:48 Absolute Basophils 0.0 k/mm3 (0.0-0.1) 08/11/20 10:48 pCO2 19.7 mmHg (35.0-48.0) L* 08/11/20 11:33 pO2 109.5 mmHg (83.0-108.0) H 08/11/20 11:33 HCO3 5.8 mmol/L (21.0-28.0) L 08/11/20 11:33 Total CO2 6.4 mmol/L (19.0-24.0) L 08/11/20 11:33 Base Excess -22.2 mmol/L (-2.0-3.0) L 08/11/20 11:33 ABG pH 7.09 (7.35-7.45) L* 08/11/20 11:33 ABG O2 Sat (Measured) 96.2 % (94.0-98.0) 08/11/20 11:33 Sodium 129 mmol/L (132-142) L 08/11/20 15:40 Plasma Sodium 133 mmol/L (130-142) 08/11/20 15:40 Potassium 4.7 mmol/L (3.4-4.6) H 08/11/20 15:40 Chloride 96 mmol/L (97-106) L 08/11/20 15:40 Carbon Dioxide 11.2 mmol/L (24-32.6) L 08/11/20 15:40 Anion Gap 26.5 mmol/L (6.8-13.8) H 08/11/20 15:40 BUN 20 mg/dL (6-23) 08/11/20 15:40 Creatinine 1.43 mg/dL (0.4-1.4) H 08/11/20 15:40 Est GFR (Non-Af Amer) 55 mL/min (60-130) L 08/11/20 15:40 BUN/Creatinine Ratio 14.0 (9.0-21.6) 08/11/20 15:40 Random Glucose 335 mg/dL (70-110) H 08/11/20 15:40 Calcium 7.7 mg/dL (7.9-10.9) L 08/11/20 15:40 Calcium Adj for Albumin 8.2 mg/dL (8.4-10.2) L 08/11/20 15:40 Magnesium 2.0 mg/dL (1.2-2.8) 08/11/20 10:48 Total Bilirubin 0.4 mg/dL (0.0-1.1) 08/11/20 15:40 AST 27 U/L (0-48) 08/11/20 15:40 ALT 26 U/L (19-67) 08/11/20 15:40 Alkaline Phosphatase 195 U/L (50-170) H 08/11/20 15:40 Troponin I Less than 0.017 ng/mL (0.00-0.10) 08/11/20 10:48 Total Protein 6.7 gm/dL (6.2-8.2) 08/11/20 15:40 Albumin 3.0 gm/dl (3.4-5.0) L 08/11/20 15:40 Amylase 12 U/L (25-115) L 08/11/20 10:48 Lipase 21 U/L (73-393) L 08/11/20 10:48 Urine Color Pale yellow 08/11/20 11:20 Urine Appearance Clear (CLEAR) 08/11/20 11:20 Urine pH 5.0 pH (5.0-7.0) 08/11/20 11:20 Ur Specific [place] >=1.030 SP.GR. (1.005-1.030) 08/11/20 11:20 Urine Protein 15 mg/dL (NEGATIVE) H 08/11/20 11:20 Urine Glucose (UA) >=1000 mg/dL (NEGATIVE) H 08/11/20 11:20 Urine Ketones Large mg/dL (NEGATIVE) 08/11/20 11:20 Urine Blood 5 /ul (NEGATIVE) H 08/11/20 11:20 Urine Nitrate Negative (NEGATIVE) 08/11/20 11:20 Urine Bilirubin 1 mg/dl (NEGATIVE) H 08/11/20 11:20 Urine Urobilinogen Normal EU/dl (NORMAL) 08/11/20 11:20 Ur Leukocyte Esterase Negative /ul (NEGATIVE) 08/11/20 11:20 Urine RBC None seen /hpf (0-5) 08/11/20 11:20 Urine WBC 0-5 /hpf (0-5) 08/11/20 11:20 Ur Epithelial Cells 0-5 /hpf (0-5) 08/11/20 11:20 Urine Bacteria None seen (NONE) 08/11/20 11:20 Urine Culture Comments No culture indicated 08/11/20 11:20 Serum Ketones Positive - 40mg/dl (NEGATIVE) H 08/11/20 10:48 SARS-CoV-2 (PCR) Detected (NotDetected) H 08/11/20 12:05 Assessment/Plan - Narrative Narrative: Patient is too somnolent for me to obtain full history. He is in DKA, possibly from COVID infection. Will start daily dexamethasone for the COVID. Will continue aggressive fluids and insulin drip, obtaining CMPs q2h and alternating hourly blood glucose. Can reduce frequency of CMPs as long as he corrects as expected. Will continue 250 cc/hr NS for now, and add D5 to fluids as his glucose decreases less than 200. Will add KCl riders to fluids for K+ of 4.7. NPO for now, but ok to have water as long as he can swallow safely. - Assessment/Plan (1) DKA (diabetic ketoacidosis) Problem: Acute Qualifiers: Diabetes mellitus type: type 1 Diabetes mellitus complication detail: without coma Qualified Code(s): E10.10 - Type 1 diabetes mellitus with ketoacidosis without coma (2) Essential (primary) hypertension Problem: Acute (3) COVID-19 Problem: Acute (4) Stage III chronic kidney disease Problem: Acute
[2020-08-11 17:52] LABS: Albumin * 2.8 gm/dl (3.4-5.0); Anion Gap 21.6 mmol/L (6.8-13.8); BUN/Creatinine Ratio 14.4 (9.0-21.6); Bilirubin, Total 0.4 mg/dL (0.0-1.1); Ca. Corrected For Albumin 7.9 mg/dL (8.4-10.2); Calcium * 7.3 mg/dL (7.9-10.9); Carbon Dioxide 15.2 mmol/L (24-32.6); Potassium 4.8 mmol/L (3.4-4.6); Total Protein 6.2 gm/dL (6.2-8.2)
[2020-08-11] MEDS: DEXTROSE 5%-0.5 NORMAL SALINE 1,000 ML IV PRN (18:44)
[2020-08-11 20:27] LABS: Albumin * 2.7 gm/dl (3.4-5.0); Anion Gap 17.8 mmol/L (6.8-13.8); BUN/Creatinine Ratio 12.1 (9.0-21.6); Bilirubin, Total 0.3 mg/dL (0.0-1.1); Ca. Corrected For Albumin 8.5 mg/dL (8.4-10.2); Calcium * 7.8 mg/dL (7.9-10.9); Carbon Dioxide 17.2 mmol/L (24-32.6); Total Protein 6.2 gm/dL (6.2-8.2)
[2020-08-11 23:58] LABS: Albumin * 2.9 gm/dl (3.4-5.0); Anion Gap 17.8 mmol/L (6.8-13.8); BUN/Creatinine Ratio 10.2 (9.0-21.6); Bilirubin, Total 0.3 mg/dL (0.0-1.1); Ca. Corrected For Albumin 8.4 mg/dL (8.4-10.2); Calcium * 7.8 mg/dL (7.9-10.9); Potassium 4.8 mmol/L (3.4-4.6); Total Protein 6.2 gm/dL (6.2-8.2)
[2020-08-12] MEDS: NORMAL SALINE 1,000 ML IV PRN ×2 (01:22→08:11)
[2020-08-12 03:51] LABS: Albumin * 2.6 gm/dl (3.4-5.0); Anion Gap 20.1 mmol/L (6.8-13.8); BUN/Creatinine Ratio 9.4 (9.0-21.6); Bilirubin, Total 0.3 mg/dL (0.0-1.1); Ca. Corrected For Albumin 8.4 mg/dL (8.4-10.2); Calcium * 7.6 mg/dL (7.9-10.9); Carbon Dioxide 17.6 mmol/L (24-32.6); Potassium 4.7 mmol/L (3.4-4.6); Total Protein 5.7 gm/dL (6.2-8.2)
[2020-08-12 07:57] LABS: Albumin * 2.5 gm/dl (3.4-5.0); Anion Gap 16.3 mmol/L (6.8-13.8); Bilirubin, Total 0.3 mg/dL (0.0-1.1); Ca. Corrected For Albumin 8.6 mg/dL (8.4-10.2); Calcium * 7.7 mg/dL (7.9-10.9); Carbon Dioxide 20.6 mmol/L (24-32.6); Potassium 3.9 mmol/L (3.4-4.6); Total Protein 5.6 gm/dL (6.2-8.2)
[2020-08-12] MEDS: ACETAMINOPHEN 325 MG TABLET PO PRN ×2 (08:31→20:49)
--- NOTE | 2020-08-12 09:13 | PN ---
Subjective - Date and Time Seen Date: 08/12/20 Time: 08:30 Subjective Narrative: He is having some nausea and abdominal pain this morning. Is urinating frequently. Also has cough and chest pressure that started Tuesday, 4 days ago. Is more alert this morning. Objective - Review of Systems Generalized/Overall Review: Denies: Fever Respiratory: Reports: Cough Cardiac: Reports: Other - chest pressure Abdominal: Reports: Nausea, Abdominal Pain. Denies: Vomiting Genitourinary Symptoms: Reports: No Symptoms Reported Neurological: Reports: Headache - Vitals Vitals: Last Vital Signs Temp 37.3 C 08/12/20 08:40 Pulse 88 08/12/20 08:40 Resp 15 08/12/20 08:40 BP 115/75 08/12/20 08:40 Pulse Ox 95 08/12/20 08:40 - Abnormal Lab Findings Abnormal Lab Findings: Abnormal Lab Results 08/11/20 08/11/20 08/11/20 Range/Units 10:48 10:48 11:20 WBC 12.9 H (4.0-10.5) K/mm3 Immature Gran % (Auto) 0.60 H (0.001-0.429) % Immature Gran # (Auto) 0.08 H (0.000-0.0310) K/mm3 Neutrophils % 86.3 H (42-75.0) % Lymphocytes % 5.8 L (20-51) % Neutrophils # 11.1 H (1.3-6.0) K/mm3 Lymphocytes # 0.75 L (1.5-3.5) k/mm3 pCO2 (35.0-48.0) mmHg pO2 (83.0-108.0) mmHg HCO3 (21.0-28.0) mmol/L Total CO2 (19.0-24.0) mmol/L Base Excess (-2.0-3.0) mmol/L ABG pH (7.35-7.45) Sodium 125 L (132-142) mmol/L Potassium 5.4 H D (3.4-4.6) mmol/L Chloride 89 L (97-106) mmol/L Carbon Dioxide 10.4 L (24-32.6) mmol/L Anion Gap 31.0 H (6.8-13.8) mmol/L Creatinine 1.68 H D (0.4-1.4) mg/dL Est GFR (Non-Af Amer) 46 L D (60-130) mL/min Random Glucose 517 H (70-110) mg/dL Calcium (7.9-10.9) mg/dL Calcium Adj for Albumin (8.4-10.2) mg/dL Alkaline Phosphatase 232 H (50-170) U/L Total Protein (6.2-8.2) gm/dL Albumin (3.4-5.0) gm/dl Amylase 12 L (25-115) U/L Lipase 21 L (73-393) U/L Urine Protein 15 H (NEGATIVE) mg/dL Urine Glucose (UA) >=1000 H (NEGATIVE) mg/dL Urine Blood 5 H (NEGATIVE) /ul Urine Bilirubin 1 H (NEGATIVE) mg/dl Serum Ketones Positive - 40mg/dl H (NEGATIVE) SARS-CoV-2 (PCR) (NotDetected) 08/11/20 08/11/20 08/11/20 Range/Units 11:33 12:05 13:56 WBC (4.0-10.5) K/mm3 Immature Gran % (Auto) (0.001-0.429) % Immature Gran # (Auto) (0.000-0.0310) K/mm3 Neutrophils % (42-75.0) % Lymphocytes % (20-51) % Neutrophils # (1.3-6.0) K/mm3 Lymphocytes # (1.5-3.5) k/mm3 pCO2 19.7 L* (35.0-48.0) mmHg pO2 109.5 H (83.0-108.0) mmHg HCO3 5.8 L (21.0-28.0) mmol/L Total CO2 6.4 L (19.0-24.0) mmol/L Base Excess -22.2 L (-2.0-3.0) mmol/L ABG pH 7.09 L* (7.35-7.45) Sodium 130 L (132-142) mmol/L Potassium 5.3 H (3.4-4.6) mmol/L Chloride 96 L (97-106) mmol/L Carbon Dioxide 9.2 L (24-32.6) mmol/L Anion Gap 30.1 H (6.8-13.8) mmol/L Creatinine (0.4-1.4) mg/dL Est GFR (Non-Af Amer) 57 L D (60-130) mL/min Random Glucose 422 H (70-110) mg/dL Calcium 7.4 L (7.9-10.9) mg/dL Calcium Adj for Albumin 7.8 L (8.4-10.2) mg/dL Alkaline Phosphatase 202 H (50-170) U/L Total Protein (6.2-8.2) gm/dL Albumin 3.1 L (3.4-5.0) gm/dl Amylase (25-115) U/L Lipase (73-393) U/L Urine Protein (NEGATIVE) mg/dL Urine Glucose (UA) (NEGATIVE) mg/dL Urine Blood (NEGATIVE) /ul Urine Bilirubin (NEGATIVE) mg/dl Serum Ketones (NEGATIVE) SARS-CoV-2 (PCR) Detected H (NotDetected) 08/11/20 08/11/20 08/11/20 Range/Units 15:40 17:34 19:43 WBC (4.0-10.5) K/mm3 Immature Gran % (Auto) (0.001-0.429) % Immature Gran # (Auto) (0.000-0.0310) K/mm3 Neutrophils % (42-75.0) % Lymphocytes % (20-51) % Neutrophils # (1.3-6.0) K/mm3 Lymphocytes # (1.5-3.5) k/mm3 pCO2 (35.0-48.0) mmHg pO2 (83.0-108.0) mmHg HCO3 (21.0-28.0) mmol/L Total CO2 (19.0-24.0) mmol/L Base Excess (-2.0-3.0) mmol/L ABG pH (7.35-7.45) Sodium 129 L 129 L (132-142) mmol/L Potassium 4.7 H 4.8 H 5.0 H (3.4-4.6) mmol/L Chloride 96 L (97-106) mmol/L Carbon Dioxide 11.2 L 15.2 L 17.2 L (24-32.6) mmol/L Anion Gap 26.5 H 21.6 H 17.8 H (6.8-13.8) mmol/L Creatinine 1.43 H (0.4-1.4) mg/dL Est GFR (Non-Af Amer) 55 L (60-130) mL/min Random Glucose 335 H 216 H D 158 H (70-110) mg/dL Calcium 7.7 L 7.3 L 7.8 L (7.9-10.9) mg/dL Calcium Adj for Albumin 8.2 L 7.9 L (8.4-10.2) mg/dL Alkaline Phosphatase 195 H 185 H 173 H (50-170) U/L Total Protein (6.2-8.2) gm/dL Albumin 3.0 L 2.8 L 2.7 L (3.4-5.0) gm/dl Amylase (25-115) U/L Lipase (73-393) U/L Urine Protein (NEGATIVE) mg/dL Urine Glucose (UA) (NEGATIVE) mg/dL Urine Blood (NEGATIVE) /ul Urine Bilirubin (NEGATIVE) mg/dl Serum Ketones (NEGATIVE) SARS-CoV-2 (PCR) (NotDetected) 08/11/20 08/12/20 08/12/20 Range/Units 23:40 03:30 07:41 WBC (4.0-10.5) K/mm3 Immature Gran % (Auto) (0.001-0.429) % Immature Gran # (Auto) (0.000-0.0310) K/mm3 Neutrophils % (42-75.0) % Lymphocytes % (20-51) % Neutrophils # (1.3-6.0) K/mm3 Lymphocytes # (1.5-3.5) k/mm3 pCO2 (35.0-48.0) mmHg pO2 (83.0-108.0) mmHg HCO3 (21.0-28.0) mmol/L Total CO2 (19.0-24.0) mmol/L Base Excess (-2.0-3.0) mmol/L ABG pH (7.35-7.45) Sodium (132-142) mmol/L Potassium 4.8 H 4.7 H (3.4-4.6) mmol/L Chloride (97-106) mmol/L Carbon Dioxide 20.0 L 17.6 L 20.6 L (24-32.6) mmol/L Anion Gap 17.8 H 20.1 H 16.3 H (6.8-13.8) mmol/L Creatinine (0.4-1.4) mg/dL Est GFR (Non-Af Amer) (60-130) mL/min Random Glucose 226 H D 245 H 190 H (70-110) mg/dL Calcium 7.8 L 7.6 L 7.7 L (7.9-10.9) mg/dL Calcium Adj for Albumin (8.4-10.2) mg/dL Alkaline Phosphatase 181 H (50-170) U/L Total Protein 5.7 L 5.6 L (6.2-8.2) gm/dL Albumin 2.9 L 2.6 L 2.5 L (3.4-5.0) gm/dl Amylase (25-115) U/L Lipase (73-393) U/L Urine Protein (NEGATIVE) mg/dL Urine Glucose (UA) (NEGATIVE) mg/dL Urine Blood (NEGATIVE) /ul Urine Bilirubin (NEGATIVE) mg/dl Serum Ketones (NEGATIVE) SARS-CoV-2 (PCR) (NotDetected) - Exam Constitutional: Present: No distress Respiratory: Present: lungs clear, normal breath sounds, no respiratory distress Cardiovascular/Chest: Present: regular rate, rhythm Abdomen: Present: soft, tender. Absent: distended Extremity: Absent: lower extremity edema Assessment/Plan Plan Narrative: His DKA is resolving overnight. Insulin drip currently going at 2 U/hr, with 150 cc/hr NS and 50 cc/hr D5 1/2 NS. Anion gap 16.3 and CO2 20.6 at last check. Glucose has been around 200. Continue current treatment, and anticipate being able to restart home insulin and letting him eat today, though he is nauseated this morning. Tachycardia and tachypnea are resolved, and he is more alert this morning. He was given decadron yesterday afternoon for COVID treatment, and will repeat this afternoon, after his DKA has resolved. He is oxygenating on room air. He complains of some chest pressure, present since Tuesday. Admission troponin was normal, and will repeat troponin with next DKA labs. - Problems/Diagnosis (1) DKA (diabetic ketoacidosis) Problem: Acute Qualifiers: Diabetes mellitus type: type 1 Diabetes mellitus complication detail: without coma Qualified Code(s): E10.10 - Type 1 diabetes mellitus with ketoacidosis without coma (2) COVID-19 Problem: Acute (3) Essential (primary) hypertension Problem: Chronic (4) Stage III chronic kidney disease Problem: Resolved Narrative: GFR of 75, creatinine 1.11.
[2020-08-12] MEDS: ONDANSETRON HCL/PF 2 MG/ML VIAL IV PRN ×2 (09:26→20:49)
[2020-08-12] MEDS: POTASSIUM CHLORIDE IN WATER 100 ML IV SCH ×4 (10:32→13:26)
[2020-08-12 12:03] LABS: ALT 21 U/L (19-67); AST 22 U/L (0-48); Albumin * 2.4 gm/dl (3.4-5.0); Alkaline Phosphatase * 147 U/L (50-170); Anion Gap 13.6 mmol/L (6.8-13.8); BUN/Creatinine Ratio 8.1 (9.0-21.6); Bilirubin, Total 0.2 mg/dL (0.0-1.1); Blood Urea Nitrogen 8 mg/dL (6-23); Ca. Corrected For Albumin 8.4 mg/dL (8.4-10.2); Calcium * 7.4 mg/dL (7.9-10.9); Carbon Dioxide 21.1 mmol/L (24-32.6); Chloride 102 mmol/L (97-106); Glucose * 131 mg/dL (70-110); Potassium 3.7 mmol/L (3.4-4.6); Sodium 133 mmol/L (132-142); Total Protein 5.3 gm/dL (6.2-8.2)
[2020-08-12 12:06] LABS: Troponin I Less than 0.017 ng/mL (0.00-0.10)
[2020-08-12] MEDS: DEXTROSE 5%-0.5 NORMAL SALINE 1,000 ML IV PRN (12:28)
[2020-08-12 15:27] LABS: Albumin * 2.4 gm/dl (3.4-5.0); Anion Gap 13.5 mmol/L (6.8-13.8); BUN/Creatinine Ratio 6.3 (9.0-21.6); Bilirubin, Total 0.3 mg/dL (0.0-1.1); Ca. Corrected For Albumin 8.4 mg/dL (8.4-10.2); Calcium * 7.4 mg/dL (7.9-10.9); Carbon Dioxide 21.4 mmol/L (24-32.6); Potassium 3.9 mmol/L (3.4-4.6); Total Protein 5.2 gm/dL (6.2-8.2)
[2020-08-12] MEDS: DEXAMETHASONE SODIUM PHOSP/PF 10 MG/ML VIAL IV SCH (15:30)
[2020-08-12] MEDS: INSULIN GLARGINE,HUM.REC.ANLOG 100 UNITS/ML VIAL SC SCH (15:51)
[2020-08-12] MEDS: INSULIN LISPRO 100 UNITS/ML VIAL SC SCH ×2 (17:20→21:00)
[2020-08-13 07:02] LABS: Albumin * 2.3 gm/dl (3.4-5.0); Anion Gap 10.9 mmol/L (6.8-13.8); BUN/Creatinine Ratio 6.5 (9.0-21.6); Bilirubin, Total 0.4 mg/dL (0.0-1.1); Ca. Corrected For Albumin 8.8 mg/dL (8.4-10.2); Calcium * 7.8 mg/dL (7.9-10.9); Carbon Dioxide 25.8 mmol/L (24-32.6); Potassium 3.7 mmol/L (3.4-4.6); Total Protein 5.5 gm/dL (6.2-8.2)
[2020-08-13] MEDS: INSULIN LISPRO 100 UNITS/ML VIAL SC SCH ×4 (07:33→20:41)
[2020-08-13] MEDS ORDERED: PROMETHAZINE HCL 25 MG TABLET PO PRN (08:29)
--- NOTE | 2020-08-13 08:38 | PN ---
Subjective - Date and Time Seen Date: 08/13/20 Time: 08:10 Subjective Narrative: He has been unable to keep anything down, so he hasn't eaten much in 6 days. Is having heartburn, and the zofran isn't helping. He received his 2nd COVID vaccine on the day his symptoms started. He transitioned to home insulin yesterday afternoon. Was able to walk to the bathroom. Objective - Review of Systems Generalized/Overall Review: Denies: Fever Cardiac: Reports: Other - chest discomfort Abdominal: Reports: Nausea, Vomiting Genitourinary Symptoms: Reports: No Symptoms Reported - Vitals Vitals: Last Vital Signs Temp 36.9 C 08/13/20 05:25 Pulse 94 08/13/20 05:25 Resp 16 08/13/20 05:25 BP 136/79 08/13/20 05:25 Pulse Ox 97 08/13/20 05:25 - Abnormal Lab Findings Abnormal Lab Findings: Abnormal Lab Results 08/12/20 08/12/20 08/13/20 Range/Units 10:51 15:00 06:45 Carbon Dioxide 21.1 L 21.4 L (24-32.6) mmol/L BUN/Creatinine Ratio 8.1 L 6.3 L 6.5 L (9.0-21.6) Random Glucose 131 H D 174 H D 215 H (70-110) mg/dL Calcium 7.4 L 7.4 L 7.8 L (7.9-10.9) mg/dL Total Protein 5.3 L 5.2 L 5.5 L (6.2-8.2) gm/dL Albumin 2.4 L 2.4 L 2.3 L (3.4-5.0) gm/dl - Exam Constitutional: Present: Alert, Cooperative, No distress Respiratory: Present: lungs clear, normal breath sounds Cardiovascular/Chest: Present: regular rate, rhythm Abdomen: Present: soft, tender Extremity: Absent: lower extremity edema Eye contact: Present: cooperative, good eye contact Assessment/Plan Plan Narrative: Today is day 6 of COVID symptoms. He also received his second COVID vaccine on the day symptoms started. He had not yet built immunity to the vaccine, and tested positive for COVID 2 days ago. He has been oxygenating on room air, and heart & respiratory rates normalized as his DKA was treated. DKA resolved yesterday afternoon, and his gap stayed closed on labs this morning. He required an insulin drip for approximately 26 hours. Continue home 20 U lantus plus sliding scale humalog with meals, if he is able to eat. He is unable to maintain po hydration, and feels like it may be from heartburn. Will add IV protonix and po phenergan to see if this helps symptoms. His current symptoms are likely due to COVID. Will also restart D5 1/2 NS, since he is not able to eat, and hasn't in 6 days. He will be ok to go home when he can maintain po hydration. - Problems/Diagnosis (1) COVID-19 Problem: Acute (2) DKA (diabetic ketoacidosis) Problem: Resolved Qualifiers: Diabetes mellitus type: type 1 Diabetes mellitus complication detail: without coma Qualified Code(s): E10.10 - Type 1 diabetes mellitus with ketoacidosis without coma (3) Essential (primary) hypertension Problem: Chronic (4) Stage III chronic kidney disease Problem: Resolved Narrative: GFR 91, creatinine 0.93.
[2020-08-13] MEDS: DEXTROSE 5%-0.5 NORMAL SALINE 1,000 ML IV PRN (09:25)
[2020-08-13] MEDS: PANTOPRAZOLE SODIUM 40 MG in NORMAL SALINE 100 ML IV SCH (09:25)
[2020-08-13] MEDS ORDERED: INSULIN GLARGINE,HUM.REC.ANLOG 100 UNITS/ML VIAL SC SCH (12:00)
[2020-08-13] MEDS: INSULIN GLARGINE,HUM.REC.ANLOG 100 UNITS/ML VIAL SC SCH (12:09)
[2020-08-13] MEDS: DEXAMETHASONE SODIUM PHOSP/PF 10 MG/ML VIAL IV SCH (17:30)
[2020-08-13] MEDS: ACETAMINOPHEN 325 MG TABLET PO PRN (18:29)
[2020-08-14] MEDS: DEXTROSE 5%-0.5 NORMAL SALINE 1,000 ML IV PRN (05:00)
[2020-08-14 06:27] LABS: Hematocrit 36.4 % (42.0-52.0); Hemoglobin 12.5 gm/dL (13.5-18.0); Mean Cell Volume 86.9 fl (78-100); Mean Corpuscular Hemoglobin 29.8 pg (27-31); Mean Corpuscular Hgb Conc 34.3 g/dl (32-36); Mean Platelet Volume 9.2 fl (8-11.3); Neutrophil % 81.9 % (42-75.0); Platelet Count 140 K/mm3 (150-450); Red Blood Count 4.19 M/mm3 (4.7-6.0); Red Cell Distribution Width 11.4 % (11.5-14.0); White Blood Count 4.8 K/mm3 (4.0-10.5)
[2020-08-14 06:43] LABS: Albumin * 2.2 gm/dl (3.4-5.0); Anion Gap 8.8 mmol/L (6.8-13.8); BUN/Creatinine Ratio 9.6 (9.0-21.6); Bilirubin, Total 0.4 mg/dL (0.0-1.1); Calcium * 7.9 mg/dL (7.9-10.9); Carbon Dioxide 29.7 mmol/L (24-32.6); Potassium 3.5 mmol/L (3.4-4.6); Total Protein 5.6 gm/dL (6.2-8.2)
[2020-08-14 07:02] LABS: Magnesium 1.9 mg/dL (1.2-2.8); Phosphorus 3.3 mg/dL (2.2-4.2)
[2020-08-14] MEDS: INSULIN LISPRO 100 UNITS/ML VIAL SC SCH ×4 (07:18→20:40)
[2020-08-14] MEDS: PANTOPRAZOLE SODIUM 40 MG in NORMAL SALINE 100 ML IV SCH (07:30)
[2020-08-14] MEDS: INSULIN GLARGINE,HUM.REC.ANLOG 100 UNITS/ML VIAL SC SCH (12:02)
--- NOTE | 2020-08-14 14:42 | PN ---
Subjective - Date and Time Seen Date: 08/14/20 Time: 08:00 Subjective Narrative: He reports feeling a lot better this morning. He did have a fever overnight, though. He was able to eat a little more this morning. His chest pressure and nausea are better. His ankles feel a bit tight. Objective - Review of Systems Generalized/Overall Review: Reports: Weakness, Fever Respiratory: Denies: Shortness of Breath Cardiac: Denies: Chest Pain Abdominal: Reports: Nausea Genitourinary Symptoms: Reports: No Symptoms Reported - Vitals Vitals: Last Vital Signs Temp 36.7 C 08/14/20 13:54 Pulse 85 08/14/20 13:54 Resp 16 08/14/20 13:54 BP 134/70 08/14/20 13:54 Pulse Ox 95 08/14/20 13:54 - Abnormal Lab Findings Abnormal Lab Findings: Abnormal Lab Results 08/14/20 08/14/20 Range/Units 06:21 06:21 RBC 4.19 L (4.7-6.0) M/mm3 Hgb 12.5 L (13.5-18.0) gm/dL Hct 36.4 L (42.0-52.0) % RDW 11.4 L (11.5-14.0) % Plt Count 140 L (150-450) K/mm3 Immature Gran % (Auto) 0.60 H (0.001-0.429) % Neutrophils % 81.9 H (42-75.0) % Lymphocytes % 10.2 L (20-51) % Lymphocytes # 0.49 L (1.5-3.5) k/mm3 Random Glucose 235 H (70-110) mg/dL ALT 18 L (19-67) U/L Total Protein 5.6 L (6.2-8.2) gm/dL Albumin 2.2 L (3.4-5.0) gm/dl - Exam Constitutional: Present: Alert, Cooperative, No distress Respiratory: Present: normal breath sounds, no respiratory distress Cardiovascular/Chest: Present: regular rate, rhythm Abdomen: Present: soft, tender - improved from yesterday Extremity: Absent: lower extremity edema Assessment/Plan Plan Narrative: His DKA and ARTIS resolved. He required an insulin drip for approximately 26 hours. Continue home insulin regimen - 20 U Lantus daily, and SSI with meals. He continues to have very low po intake due to COVID. He received IV fluids until this morning. Nausea and vomiting are improving, but still present. He has some dizziness when standing, and has had limited ambulation over the last week since symptoms started. He does not yet feel comfortable going home today, which is to be expected with his poor po intake. Anticipate DC tomorrow. His mother offered for him to go to her house after DC, because he lives alone. Also discussed with his PCP's nurse, who agrees to doing phone visits after DC. - Problems/Diagnosis (1) COVID-19 Problem: Acute Narrative: Patient received his 2nd COVID vaccine on 08/08, and was not feeling will when he got the vaccine, with nausea and vomiting. He felt like his diabetes may have been causing the symptoms. Came to the ED on 08/11 for persistent nausea and vomiting, and was in DKA and tested positive for COVID. He has not required oxygen. he had some chest pressure and heartburn, which have resolved. He has no taste, and has been nauseated, so po intake has been poor. He has been getting dexamethasone while here, today will be day #4. (2) Nausea & vomiting Problem: Acute (3) DKA (diabetic ketoacidosis) Problem: Resolved Qualifiers: Diabetes mellitus type: type 1 Diabetes mellitus complication detail: without coma Qualified Code(s): E10.10 - Type 1 diabetes mellitus with ketoacidosis without coma (4) Essential (primary) hypertension Problem: Chronic (5) Stage III chronic kidney disease Problem: Resolved
[2020-08-14] MEDS: DEXAMETHASONE SODIUM PHOSP/PF 10 MG/ML VIAL IV SCH (16:06)
[2020-08-14] MEDS: ACETAMINOPHEN 325 MG TABLET PO PRN (20:42)
[2020-08-15] MEDS: INSULIN LISPRO 100 UNITS/ML VIAL SC SCH (07:36)
[2020-08-15] MEDS: PANTOPRAZOLE SODIUM 40 MG in NORMAL SALINE 100 ML IV SCH (07:37)
--- NOTE | 2020-08-15 10:28 | DS ---
Date of Discharge:: 08/15/20 Hospital Course: Eduardo presented with DKA likely secondary to Covid infection. Patient was started on insulin drip and had electrolytes monitored until his gap closed and his sugars normalized. CO2 also improved significantly while the drip. Patient related for over 24 hours until his DKA resolved. Initial blood sugar was 517 and has been in the low 200s since. Sugars were hard to control at this visit due to patient also being positive for Covid and was started on Decadron for this issue. Patient was feeling fairly crappy secondary to his Covid infection after resolution of his DKA which is why he stayed an extra 2 days. He will be sent home on Decadron for a total of 7 days. Patient states that he knows how to manage his insulin and his diabetes and has no concerns or questions regarding this. No changes were made to his insulin regimen and he will follow up with his PCP in 2 weeks (to make sure is Covid infection resolves prior to returning to the hospital )to make sure his sugars are okay and his managing this appropriately. While here his vital signs been stable and has not required any supplemental oxygen for his coinfection. He had 1 elevated temp 2 days ago at 38.4 but otherwise has been afebrile. No respiratory distress whatsoever. Patient is nausea also resolved once his DKA resolved. Initial laboratory values included an elevated white count of 12.9. His CHEM panel showed an average sugar of 517, he had a gap of 30. His carbon dioxide was 9.2. Potassium was mildly elevated at 5.3. Sodium was low but corrected into a normal range when adjusted for his sugar levels. Initial blood gas showed and have a pH of 7.09 with a PCO2 of 19.7. His bicarb is 5.8. His urine showed him to have elevated glucose in his urine as to be expected with his DKA. He also has ketotic with his toxicology. Overall he did well while here and his DKA resolved without complication. Again he is comfortable and confident in managing his diabetes and has no concerns with this at this time. He will be discharged home again on his regular home treatment plan. Likely he is Covid infection same into DKA but that is also resolving and he feels much better today. No longer having any body aches, afebrile, no respiratory distress. Cough is also improved per patient. Patient be discharged home with directions to follow-up with his PCP in 2 weeks. He knows to call with any questions or concerns. 45 minutes critical care time spent on reviewing patient chart, evaluate the patient, reconciling his medications and sent his medications to his pharmacy as well as scheduling his follow-up with his PCP. Procedures Performed: none Results and Findings: Lab Pending Results 08/11/20 10:48: WBC 12.9 H, RBC 5.30, Hgb 15.8, Hct 47.6, MCV 89.8, MCH 29.8, MCHC 33.2, RDW 11.6, Plt Count 274, MPV 9.6, Immature Gran % (Auto) 0.60 H, Immature Gran # (Auto) 0.08 H, Neutrophils % 86.3 H, Lymphocytes % 5.8 L, Monocytes % 7.1, Eosinophils % 0.0, Basophils % 0.2, Nucleated RBC % 0.0, Neutrophils # 11.1 H, Lymphocytes # 0.75 L, Monocytes # 0.9, Eosinophils # 0.0, Absolute Basophils 0.0 08/11/20 10:48: Sodium 125 L, Plasma Sodium 132, Potassium 5.4 H D, Chloride 89 L, Carbon Dioxide 10.4 L, Anion Gap 31.0 H, BUN 21 D, Creatinine 1.68 H D, Est GFR (Non-Af Amer) 46 L D, BUN/Creatinine Ratio 12.5, Random Glucose 517 H, Calcium 8.7, Calcium Adj for Albumin 8.8, Total Bilirubin 0.6, AST 30, ALT 30, Alkaline Phosphatase 232 H, Troponin I Less than 0.017, Total Protein 7.8, Albumin 3.5, Amylase 12 L, Lipase 21 L, Serum Ketones Positive - 40mg/dl H 08/11/20 10:48: Magnesium 2.0 08/11/20 11:20: Urine Color Pale yellow, Urine Appearance Clear, Urine pH 5.0, Ur Specific Hawley >=1.030, Urine Protein 15 H, Urine Glucose (UA) >=1000 H, Urine Ketones Large, Urine Blood 5 H, Urine Nitrate Negative, Urine Bilirubin 1 H, Urine Urobilinogen Normal, Ur Leukocyte Esterase Negative, Urine RBC None seen, Urine WBC 0-5, Ur Epithelial Cells 0-5, Urine Bacteria None seen, Urine Culture Comments No culture indicated 08/11/20 11:33: pCO2 19.7 L*, pO2 109.5 H, HCO3 5.8 L, Total CO2 6.4 L, Base Excess -22.2 L, ABG pH 7.09 L*, ABG O2 Sat (Measured) 96.2 08/11/20 12:05: SARS-CoV-2 (PCR) Detected H 08/11/20 13:56: Sodium 130 L, Plasma Sodium 135, Potassium 5.3 H, Chloride 96 L, Carbon Dioxide 9.2 L, Anion Gap 30.1 H, BUN 21, Creatinine 1.39, Est GFR (Non-Af Amer) 57 L D, BUN/Creatinine Ratio 15.1, Random Glucose 422 H, Calcium 7.4 L, Calcium Adj for Albumin 7.8 L, Total Bilirubin 0.5, AST 29, ALT 28, Alkaline Phosphatase 202 H, Total Protein 6.7, Albumin 3.1 L 08/11/20 15:40: Sodium 129 L, Plasma Sodium 133, Potassium 4.7 H, Chloride 96 L, Carbon Dioxide 11.2 L, Anion Gap 26.5 H, BUN 20, Creatinine 1.43 H, Est GFR (Non-Af Amer) 55 L, BUN/Creatinine Ratio 14.0, Random Glucose 335 H, Calcium 7.7 L, Calcium Adj for Albumin 8.2 L, Total Bilirubin 0.4, AST 27, ALT 26, Alkaline Phosphatase 195 H, Total Protein 6.7, Albumin 3.0 L 08/11/20 17:34: Sodium 132, Plasma Sodium 134, Potassium 4.8 H, Chloride 100, Carbon Dioxide 15.2 L, Anion Gap 21.6 H, BUN 18, Creatinine 1.25, Est GFR (Non- Af Amer) 65, BUN/Creatinine Ratio 14.4, Random Glucose 216 H D, Calcium 7.3 L, Calcium Adj for Albumin 7.9 L, Total Bilirubin 0.4, AST 26, ALT 26, Alkaline Phosphatase 185 H, Total Protein 6.2, Albumin 2.8 L 08/11/20 19:43: Sodium 129 L, Plasma Sodium 130, Potassium 5.0 H, Chloride 99, Carbon Dioxide 17.2 L, Anion Gap 17.8 H, BUN 15, Creatinine 1.24, Est GFR (Non- Af Amer) 65, BUN/Creatinine Ratio 12.1, Random Glucose 158 H, Calcium 7.8 L, Calcium Adj for Albumin 8.5, Total Bilirubin 0.3, AST 25, ALT 25, Alkaline Phosphatase 173 H, Total Protein 6.2, Albumin 2.7 L 08/11/20 23:40: Sodium 133, Plasma Sodium 135, Potassium 4.8 H, Chloride 100, Carbon Dioxide 20.0 L, Anion Gap 17.8 H, BUN 13, Creatinine 1.28, Est GFR (Non- Af Amer) 63, BUN/Creatinine Ratio 10.2, Random Glucose 226 H D, Calcium 7.8 L, Calcium Adj for Albumin 8.4, Total Bilirubin 0.3, AST 26, ALT 23, Alkaline Phosphatase 181 H, Total Protein 6.2, Albumin 2.9 L 08/12/20 03:30: Sodium 134, Plasma Sodium 136, Potassium 4.7 H, Chloride 101, Carbon Dioxide 17.6 L, Anion Gap 20.1 H, BUN 11, Creatinine 1.17, Est GFR (Non- Af Amer) 70, BUN/Creatinine Ratio 9.4, Random Glucose 245 H, Calcium 7.6 L, Calcium Adj for Albumin 8.4, Total Bilirubin 0.3, AST 23, ALT 23, Alkaline Phosphatase 162, Total Protein 5.7 L, Albumin 2.6 L 08/12/20 07:41: Sodium 134, Plasma Sodium 135, Potassium 3.9, Chloride 101, Carbon Dioxide 20.6 L, Anion Gap 16.3 H, BUN 10, Creatinine 1.11, Est GFR (Non- Af Amer) 74, BUN/Creatinine Ratio 9.0, Random Glucose 190 H, Calcium 7.7 L, Calcium Adj for Albumin 8.6, Total Bilirubin 0.3, AST 24, ALT 20, Alkaline Phosphatase 159, Total Protein 5.6 L, Albumin 2.5 L 08/12/20 10:51: Sodium 133, Plasma Sodium 133, Potassium 3.7, Chloride 102, Carbon Dioxide 21.1 L, Anion Gap 13.6, BUN 8, Creatinine 0.99, Est GFR (Non-Af Amer) 85, BUN/Creatinine Ratio 8.1 L, Random Glucose 131 H D, Calcium 7.4 L, Calcium Adj for Albumin 8.4, Total Bilirubin 0.2, AST 22, ALT 21, Alkaline Phosphatase 147, Troponin I Less than 0.017, Total Protein 5.3 L, Albumin 2.4 L 08/12/20 15:00: Sodium 132, Plasma Sodium 133, Potassium 3.9, Chloride 101, Carbon Dioxide 21.4 L, Anion Gap 13.5, BUN 6, Creatinine 0.96, Est GFR (Non-Af Amer) 88, BUN/Creatinine Ratio 6.3 L, Random Glucose 174 H D, Calcium 7.4 L, Calcium Adj for Albumin 8.4, Total Bilirubin 0.3, AST 23, ALT 19, Alkaline Phosphatase 147, Total Protein 5.2 L, Albumin 2.4 L 08/13/20 06:45: Sodium 133, Plasma Sodium 135, Potassium 3.7, Chloride 100, Carbon Dioxide 25.8, Anion Gap 10.9, BUN 6, Creatinine 0.93, Est GFR (Non-Af Amer) 91, BUN/Creatinine Ratio 6.5 L, Random Glucose 215 H, Calcium 7.8 L, Calcium Adj for Albumin 8.8, Total Bilirubin 0.4, AST 20, ALT 19, Alkaline Phosphatase 150, Total Protein 5.5 L, Albumin 2.3 L 08/14/20 06:21: Sodium 135, Plasma Sodium 137, Potassium 3.5, Chloride 100, Carbon Dioxide 29.7, Anion Gap 8.8, BUN 7, Creatinine 0.73, Est GFR (Non-Af Amer) 120 D, BUN/Creatinine Ratio 9.6, Random Glucose 235 H, Calcium 7.9, Calcium Adj for Albumin 9.0, Phosphorus 3.3, Magnesium 1.9, Total Bilirubin 0.4, AST 19, ALT 18 L, Alkaline Phosphatase 140, Total Protein 5.6 L, Albumin 2.2 L 08/14/20 06:21: WBC 4.8 D, RBC 4.19 L, Hgb 12.5 L, Hct 36.4 L, MCV 86.9, MCH 29.8, MCHC 34.3, RDW 11.4 L, Plt Count 140 L, MPV 9.2, Immature Gran % (Auto) 0.60 H, Immature Gran # (Auto) 0.03, Neutrophils % 81.9 H, Lymphocytes % 10.2 L, Monocytes % 7.1, Eosinophils % 0.0, Basophils % 0.2, Nucleated RBC % 0.0, Neutrophils # 4.0, Lymphocytes # 0.49 L, Monocytes # 0.3, Eosinophils # 0.0, Absolute Basophils 0.0 Discharge Location: Home Disposition: Home self-care Condition: Good Discharge Activity: Activity as tolerated Discharge Diet: Consistent carbs Referrals: Elton Martínez DO [Primary Care Provider] - Two Weeks Problem Oriented Discharge Instructions to Patient/Family: COVID-19 Prescriptions (Any new or edited meds): Dexamethasone [Decadron] 6 mg PO DAILY #3 tab Transmission Status: Pending to [facility] #[id number] Complete Home Medications List: Complete Home Medication List: acetaminophen 325 mg tablet 650 mg PO Q6H PRN tab 07/21/18 blood sugar diagnostic See Dose Instructions .ROUTE .MEDSUPPLY #100 ea 02/08/19 blood sugar diagnostic See Rx Instructions .ROUTE .MEDSUPPLY #50 ea 05/23/19 Insulin Glargine,Hum.rec.anlog [Lantus Solostar] 20 unit SUBCUT 1200 08/11/20 Insulin Lispro [Humalog Kwikpen U-100] See Protocol SUBCUT ACHS 08/11/20 Dexamethasone [Decadron] 6 mg PO DAILY #3 tab 08/15/20 Forms: Patient Portal Registration
[2020-08-15 10:51] VITALS: BP 144/88
== END 2020-08-14 11:20 | disposition home or self-care (01) | DRG 177 ==
LOC: ER 10:30 → SCU 13:21
PROVIDERS: ADMIT Family Medicine; ATTEND Family Medicine
DX: Z79.4 Long term (current) use of insulin; N18.30 Chronic kidney disease, stage 3 unspecified; F17.220 Nicotine dependence, chewing tobacco, uncomplicated; N17.9 Acute kidney failure, unspecified; E10.22 Type 1 diabetes mellitus with diabetic chronic kidney disease; R12 Heartburn; E78.5 Hyperlipidemia, unspecified; E10.10 Type 1 diabetes mellitus with ketoacidosis without coma; I12.9 Hypertensive chronic kidney disease with stage 1 through stage 4 chronic kidney disease, or unspecified chronic kidney disease; E86.0 Dehydration; E10.42 Type 1 diabetes mellitus with diabetic polyneuropathy; U07.1 COVID-19